=== PATIENT | female | born 1960 | race Caucasian/White ===

== ENCOUNTER → 2016-07-30 | Outpatient (REF) | payer OTHER | LOC: M LAB REF 12:55 | PROVIDERS: ATTEND Physician Assistant | DX: J01.10 Acute frontal sinusitis, unspecified (principal); J02.9 Acute pharyngitis, unspecified ==

== ENCOUNTER 2016-10-09 08:42 | Emergency (ER) | payer OTHER ==
[~2016-10-09] VITALS: Ht 170.2 cm; Wt 80.7 kg
[2016-10-09 08:42] VITALS: BP 146/89
[~2016-10-09 08:42] MED LIST: CITRTAB18 PO; VITA100054 PO; VITA500046 PO
== END 2016-10-09 10:30 | disposition home or self-care (01) ==
LOC: M ED 10:28
DX: S30.0XXA Contusion of lower back and pelvis, initial encounter (principal); W10.9XXA Fall (on) (from) unspecified stairs and steps, initial encounter; Y92.099 Unspecified place in other non-institutional residence as the place of occurrence of the external cause; Y93.89 Activity, other specified; Y99.9 Unspecified external cause status; Z88.8 Allergy status to other drugs, medicaments and biological substances

== ENCOUNTER → 2016-10-18 | Outpatient (CLI) | payer OTHER ==
[~2016-10-18] VITALS: Ht 170.2 cm; Wt 81.6 kg
[~2016-10-18] MED LIST changes: +LIDOCAINE 2% INJ 100 MG/5 ML SDV (FOR ANES.) As Ordered ONE; +NS 1,000 ML IV SCH; +PROPOFOL 200 MG/20 ML VIAL As Ordered ONE
--- NOTE | 2016-10-18 08:30 | ROOR ---
Patient Name: Mira Vegas Procedure Date: 10/18/2016 8:17 AM Date of : 1960 Age: 56 Room: [facility] Gender: Female Note Status: Finalized Procedure: Colonoscopy Indications: Screening for colorectal malignant neoplasm Providers: Fadi CALZADA MD Referring MD: BEVERLY LEON Requesting Provider: Medicines: Monitored Anesthesia Care Complications: No immediate complications. Procedure: Pre-Anesthesia Assessment: - The heart rate, respiratory rate, oxygen saturations, blood pressure, adequacy of pulmonary ventilation, and response to care were monitored throughout the procedure. The Colonoscope was introduced through the anus and advanced to the cecum, identified by appendiceal orifice and ileocecal valve. The colonoscopy was performed without difficulty. The patient tolerated the procedure well. The quality of the bowel preparation was poor. Findings: The perianal and digital rectal examinations were normal. The exam was otherwise normal throughout the examined colon. Impression: - Preparation of the colon was poor. - No obstructing lesions. - Consider early repeat exam. Recommendation: - Repeat colonoscopy in 1 year because the bowel preparation was poor. Fadi Calzada MD Fadi CALZADA MD 10/18/2016 8:30:31 AM This report has been signed electronically. Number of Addenda: 0 Note Initiated On: 10/18/2016 8:17 AM Estimated Blood Loss: Estimated blood loss: none.
[2016-10-18 09:00] VITALS: BP 141/81
== END | disposition home or self-care (01) ==
LOC: M OPP 07:21
PROVIDERS: ATTEND Internal Medicine Gastroenterology
DX: Z12.11 Encounter for screening for malignant neoplasm of colon (principal); Z78.0 Asymptomatic menopausal state; Z88.8 Allergy status to other drugs, medicaments and biological substances; Z79.899 Other long term (current) drug therapy; Z80.3 Family history of malignant neoplasm of breast
CPT/HCPCS: 99156; G0121

== ENCOUNTER 2016-12-01 18:35 | Emergency (ER) | payer OTHER ==
[~2016-12-01] VITALS: Ht 170.2 cm; Wt 77.1 kg
[~2016-12-01 18:35] MED LIST changes: -LIDOCAINE 2% INJ 100 MG/5 ML SDV (FOR ANES.) As Ordered ONE; -NS 1,000 ML IV SCH; -PROPOFOL 200 MG/20 ML VIAL As Ordered ONE
--- NOTE | 2016-12-01 20:50 | REPUSA ---
CLINICAL HISTORY: Head trauma. TECHNIQUE: Multiple axial brain CT scan sections were obtained from base to vertex without contrast a dministration. COMMENTS: There is no evidence of skull fracture. Note is made of a large left parietal scalp hematoma. The study shows normal configuration of sella turcica. There are no intra or extra-axial collections. There is no mass effect or midline shift. There is no evidence of hematoma formation. No hydrocephal us is present. No abnormal calcifications are noted. No significant abnormalities are seen either in the posterior fossa or supratentorial compartment. The sinuses and mastoid air cells are patent. IMPRESSION: No evidence of acute intracranial pathology. No intracranial hemorrhage or skull fracture. Large left parietal scalp hematoma. Thank you for your kind referral of this patient.
[2016-12-01 21:08] VITALS: BP 121/82
== END 2016-12-01 21:18 | disposition home or self-care (01) ==
LOC: M ED 20:05
DX: S01.01XA Laceration without foreign body of scalp, initial encounter (principal); W10.9XXA Fall (on) (from) unspecified stairs and steps, initial encounter; Y92.014 Private driveway to single-family (private) house as the place of occurrence of the external cause; Y93.01 Activity, walking, marching and hiking; Y99.9 Unspecified external cause status; Z88.8 Allergy status to other drugs, medicaments and biological substances

== ENCOUNTER → 2016-12-03 | Outpatient (CLI) | payer OTHER ==
[~2016-12-03] MED LIST changes: +Calcium; +DEPA250T2 PO; +IBUP600T26 PO
--- NOTE | 2016-12-03 08:53 | REPMRS ---
Patient History The patient states she had a clinical breast exam in 10/2016. Patient is postmenopausal and had first child at age 39. Family history of breast cancer in maternal aunt and breast cancer in maternal grandmother at age 50 or over. Took hormonal contraceptives for 15 years. Digital Woman Screen Mammo: December 03, 2016 - Exam #: [id number] Bilateral CC and MLO view(s) were taken. Technologist: Dominique Corona Technologist Prior study comparison: May 29, 2015, digital woman screen mammo performed at [facility]. February 28, 2014, bilateral bilat screen digital mammo, performed at [facility] ([facility]). February 15, 2013, bilateral bilat screen digital mammo, performed at [facility] ([facility]). FINDINGS: There are scattered fibroglandular densities. There has been no change in the appearance of the mammogram from the prior studies. There is a mild amount of scattered fibroglandular density which is fairly symmetric. There is no interval development of dominant mass, architectural distortion, or clustered microcalcification suggestive of malignancy. ASSESSMENT: BI-RADS/ACR category 1 mammogram. Negative. Recommendation Routine screening mammogram in 1 year (for women over age 40). This mammogram was interpreted with the aid of an FDA-approved computer-aided dectection system. Electronically Signed By: Angel Davis MD 12/03/16 0853
--- NOTE | 2016-12-07 09:32 | DEXA ---
AP SPINE L1 - L4 1.399 1.7 2.4 LT FEMUR TOTAL 1.154 1.2 1.8 RT FEMUR TOTAL 1.145 1.1 1.7 TOTAL BODY TOTAL OTHER DUAL FEMUR FRAX* ASSESSMENT Risk factors: Fracture as adult. 10 year probability of fracture Major osteoporotic fracture 8.8 % Hip fracture 0.2 % COMMENTS: Normal bone densitometry of the spine and hips. The density of the spine has increased 3.5% since 02/15/2003. The density of the left hip has decreased 0.6% since 02/15/2013. The density of the right hip has decreased 0.3% since 02/15/2013. The increased density of the spine does represent a significant change. The decreased density of the left hip does not represent a significant change. The decreased density of the right hip does not represent a significant change. FOLLOW-UP: Recommendation for the next bone density exam: 5 years. RAFI
== END ==
LOC: M WHC 07:49
PROVIDERS: ATTEND Obstetrics & Gynecology
DX: Z12.31 Encounter for screening mammogram for malignant neoplasm of breast (principal); Z13.820 Encounter for screening for osteoporosis; Z78.0 Asymptomatic menopausal state; Z92.0 Personal history of contraception
CPT/HCPCS: 77080; G0202

== ENCOUNTER 2016-12-07 10:11 | Emergency (ER) | payer OTHER ==
[~2016-12-07] VITALS: Ht 170.2 cm; Wt 173.0 kg
[~2016-12-07 10:11] MED LIST changes: -Calcium; -DEPA250T2 PO; -IBUP600T26 PO
[2016-12-07] MEDS ORDERED: IBUP600T26 PO (10:25)
[2016-12-07] MEDS ORDERED: Calcium (10:25)
[2016-12-07 11:42] VITALS: BP 146/89
== END 2016-12-07 11:47 | disposition home or self-care (01) ==
LOC: M ED 11:38
DX: S06.0X0S Concussion without loss of consciousness, sequela (principal); W10.9XXS Fall (on) (from) unspecified stairs and steps, sequela; Y92.014 Private driveway to single-family (private) house as the place of occurrence of the external cause; Y93.01 Activity, walking, marching and hiking; Y99.9 Unspecified external cause status; Z48.02 Encounter for removal of sutures; Z88.8 Allergy status to other drugs, medicaments and biological substances

== ENCOUNTER 2016-12-10 11:14 | Emergency (ER) | payer OTHER ==
[~2016-12-10] VITALS: Ht 170.2 cm; Wt 80.2 kg
[~2016-12-10 11:14] MED LIST changes: +Calcium; +IBUP-1022 PO
[2016-12-10] MEDS ORDERED: DEPA250T2 PO (13:23)
[2016-12-10 13:27] VITALS: BP 147/87
[2016-12-10] MEDS ORDERED: CLINDAMYCIN 900 MG in APPROPRIATE DILUENT 1 EA IV ONE (13:30)
== END 2016-12-10 13:44 | disposition home or self-care (01) ==
LOC: M ED 12:16
DX: G44.309 Post-traumatic headache, unspecified, not intractable (principal)

== ENCOUNTER → 2016-12-27 | Outpatient (REF) | payer OTHER ==
[~2016-12-27] MED LIST changes: +DEPA250T2 PO
== END ==
LOC: M LAB REF 16:43
PROVIDERS: ATTEND Physician Assistant
DX: F07.81 Postconcussional syndrome (principal); S01.80XD Unspecified open wound of other part of head, subsequent encounter; X58.XXXD Exposure to other specified factors, subsequent encounter; Y92.89 Other specified places as the place of occurrence of the external cause; Y93.89 Activity, other specified; Y99.8 Other external cause status

== ENCOUNTER → 2017-05-25 | Outpatient (CLI) | payer OTHER ==
--- NOTE | 2017-05-25 12:43 | REP ---
Clinical: Left-sided chest pain. Technique: Frontal view of the chest with multiple views of the left hemithorax. Findings: Frontal view of the chest demonstrates no acute cardiopulmonary process. Multiple views of the left hemithorax demonstrates no obvious acute rib fracture or pathology. Impression: Normal left rib series Signed by Reji Cedeño MD 05/25/2017 12:34 P
== END ==
LOC: M LRY 12:10
PROVIDERS: ATTEND Nurse Practitioner Family
DX: R07.81 Pleurodynia (principal)

== ENCOUNTER → 2017-12-14 | Outpatient (CLI) | payer OTHER | LOC: M WHC 08:28 | DX: Z12.31 Encounter for screening mammogram for malignant neoplasm of breast (principal) ==

== ENCOUNTER 2018-03-24 07:55 | Day surgery (SDC) | payer OTHER ==
[2018-03-24] MEDS: NS 1,000 ML IV (09:00)
[2018-03-24] MEDS ORDERED: LIDOCAINE 2% INJ 100 MG/5 ML SDV (FOR ANES.) As Ordered (09:52)
[2018-03-24] MEDS ORDERED: PROPOFOL 200 MG/20 ML VIAL As Ordered (09:52)
== END 2018-03-24 10:22 | disposition home or self-care (01) ==
LOC: M OPP 07:55
DX: Z12.11 Encounter for screening for malignant neoplasm of colon (principal); E55.9 Vitamin D deficiency, unspecified; Z87.828 Personal history of other (healed) physical injury and trauma; Z78.0 Asymptomatic menopausal state; Z88.8 Allergy status to other drugs, medicaments and biological substances; Z80.3 Family history of malignant neoplasm of breast
CPT/HCPCS: 45378

== ENCOUNTER → 2018-09-05 | Outpatient (REF) | payer OTHER ==
[~2018-09-05] MED LIST changes: +MULT1TAB10 PO
[2018-09-05 19:26] LABS: INFLUENZA A AMPLIFICATION NEGATIVE (NEGATIVE); INFLUENZA B AMPLIFICATION NEGATIVE (NEGATIVE)
== END ==
LOC: M LAB REF 18:38
PROVIDERS: ATTEND Physician Assistant Medical
DX: J11.1 Influenza due to unidentified influenza virus with other respiratory manifestations (principal)

== ENCOUNTER → 2018-12-13 | Outpatient (CLI) | payer OTHER ==
--- NOTE | 2018-12-13 15:47 | REPMRS ---
Patient History The patient states she had a clinical breast exam in 11/2018. Patient is postmenopausal and had first child at age 39. Family history of breast cancer under age 50 in maternal aunt. Took hormonal contraceptives for 15 years. 3D TOMOSYNTHESIS WAS PERFORMED. The [facility] lifetime risk for breast cancer is 14.9%. Digital Woman Screen Mammo: December 13, 2018 - Exam #: [id number] Bilateral CC and MLO view(s) were taken. Technologist: Hien Martinez, Technologist Prior study comparison: December 14, 2017, bilateral digital woman screen mammo performed at [facility]. December 03, 2016, digital woman screen mammo performed at [facility]. FINDINGS: There are scattered fibroglandular densities. There has been no change in the appearance of the mammogram from the prior studies. There is a mild amount of residual fibroglandular tissue which is fairly symmetric. There is no interval development of dominant mass, architectural distortion, or clustered microcalcification suggestive of malignancy. Assessment: BI-RADS/ACR category 1 mammogram. Negative Mammogram. Recommendation Routine screening mammogram in 1 year (for women over age 40). This mammogram was interpreted with the aid of an FDA-approved computer-aided dectection system. Electronically Signed By: Juan Serra MD 12/13/18 2265
== END ==
LOC: M WHC 14:35
PROVIDERS: ATTEND Nurse Practitioner Women's Health
DX: Z12.31 Encounter for screening mammogram for malignant neoplasm of breast (principal); Z78.0 Asymptomatic menopausal state; Z92.0 Personal history of contraception

== ENCOUNTER → 2018-12-13 | Outpatient (REF) | payer OTHER ==
[2018-12-20 16:11] LABS: HPV HYBRID CAPTURE II Negative (Negative)
== END ==
LOC: M SFHCWAGY 15:43
PROVIDERS: ATTEND Nurse Practitioner Women's Health
DX: Z12.4 Encounter for screening for malignant neoplasm of cervix (principal); N85.8 Other specified noninflammatory disorders of uterus

== ENCOUNTER → 2019-09-24 | Outpatient (CLI) | payer BC | LOC: M LABSMTC 11:43 | PROVIDERS: ATTEND Family Medicine | DX: Z11.59 Encounter for screening for other viral diseases (principal); Z20.828 Contact with and (suspected) exposure to other viral communicable diseases ==

== ENCOUNTER → 2020-01-10 | Outpatient (CLI) | payer BC ==
--- NOTE | 2020-01-10 14:32 | REPMRS ---
Patient History The patient states she had a clinical breast exam in December 2019. Family history of breast cancer under age 50 in maternal aunt. Took hormonal contraceptives for 15 years. 3D TOMOSYNTHESIS WAS PERFORMED. The [facility] lifetime risk for breast cancer is 14.6%. VOLOSCARA ANDERS B. Digital Woman Screen Mammo: January 10, 2020 - Exam #: [id number] Bilateral CC and MLO view(s) were taken. Technologist: Ariela London, Technologist Prior study comparison: December 13, 2018, bilateral digital woman screen mammo performed at [facility]. December 14, 2017, bilateral digital woman screen mammo performed at [facility]. FINDINGS: There are scattered fibroglandular densities. There has been no change in the appearance of the mammogram from the prior studies. There is a mild amount of residual fibroglandular tissue which is fairly symmetric. There is no interval development of dominant mass, architectural distortion, or clustered microcalcification suggestive of malignancy. Assessment: BI-RADS/ACR category 1 mammogram. Negative Mammogram. Recommendation Routine screening mammogram in 1 year (for women over age 40). This mammogram was interpreted with the aid of an FDA-approved computer-aided dectection system. Electronically Signed By: Juan Serra MD 01/10/20 [id number]
== END ==
LOC: M WHC 13:27
PROVIDERS: ATTEND Nurse Practitioner Women's Health
DX: Z12.31 Encounter for screening mammogram for malignant neoplasm of breast (principal)

== ENCOUNTER → 2021-01-14 | Outpatient (REF) | payer BC | LOC: M SFHCWAGY 13:07 | PROVIDERS: ATTEND Nurse Practitioner Women's Health | DX: Z12.4 Encounter for screening for malignant neoplasm of cervix (principal) | CPT/HCPCS: 87624; G0123 ==

== ENCOUNTER → 2021-01-14 | Outpatient (CLI) | payer BC ==
--- NOTE | 2021-01-14 11:25 | REPMRS ---
Patient History The patient states she had a clinical breast exam in December 2020. Family history of breast cancer under age 50 in maternal aunt. Took hormonal contraceptives for 15 years. Covid vaccines 06/2020 left arm. 07/2020 left arm Patient states no breast complaints today. Patient has signed MRS History Sheet. Digital Woman Screen Mammo: January 14, 2021 - Exam #: [id number] Bilateral CC and MLO view(s) were taken. Technologist: RT Deborah Prior study comparison: January 10, 2020, bilateral digital woman screen mamm[facility]. December 13, 2018, bilateral digital woman screen mammo performed at [facility]. December 14, 2017, bilateral digital woman screen mammo performed at [facility]. FINDINGS: There are scattered fibroglandular densities. The [facility] volumetric breast density category is:B. There is a small spiculated nodular bridger density in the superomedial quadrant of the left breast which merits further evaluation. 4 mm in greatest diameter. There has been no other change in the appearance of the mammogram from the prior studies. There is a mild amount of scattered fibroglandular density which is fairly symmetric. There is no other interval development of dominant mass, architectural distortion, or grouped microcalcification suggestive of malignancy. 3-D tomosynthesis shows no additional findings. Assessment: BI-RADS/ACR category 0 mammogram, Incomplete: Need additional imaging evaluation and/or prior mammograms for comparison. Recommendation Ultrasound and special view mammogram of the left breast. This patient's [facility] Lifetime Breast Cancer Risk is estimated at 14.2 %. This mammogram was interpreted with the aid of an FDA-approved computer-aided dectection system. Electronically Signed By: Angel Davis MD 01/14/21 1123
== END ==
LOC: M WHC 10:05
PROVIDERS: ATTEND Nurse Practitioner Women's Health
DX: R92.8 Other abnormal and inconclusive findings on diagnostic imaging of breast (principal)

== ENCOUNTER → 2021-01-22 | Outpatient (CLI) | payer BC ==
--- NOTE | 2021-01-22 16:15 | REP ---
INDICATION: ADDITIONAL VIEWS LT BREAST. COMPARISON: Multiple the latest prior screening examination 01/14/2021 TECHNIQUE: Diagnostic digital magnified spot compression views of the left breast were obtained in the CC and MLO projections over the small asymmetric density seen on the prior screening examination in the upper inner quadrant. Diagnostic ultrasonography was also performed. FINDINGS: The small asymmetric density seen on the screening examination persists on the diagnostic spot compression views. Focused diagnostic left breast ultrasound shows no cystic or solid masses. IMPRESSION: BIRADS/ACR category 4 mammogram. There is a small but persistent irregular bridger density seen in the left breast upper inner quadrant for which biopsy is recommended. The patient letter being requested is M4. RECOMMENDATION: As above. <Electronically signed by Ben German > 01/22/21 9427
== END ==
LOC: M WHC 14:50
PROVIDERS: ATTEND Nurse Practitioner Women's Health
DX: R92.2 Inconclusive mammogram (principal)

== ENCOUNTER → 2021-02-10 | Outpatient (CLI) | payer BC ==
[2021-02-10 14:06] VITALS: BP 130/78
--- NOTE | 2021-02-10 14:55 | REP ---
INDICATION: R92.8 ABN MAMMO LT BREAST,POST STEREOTACTIC BIOPSY. COMPARISON: 01/14/2021, 02/10/2021. TECHNIQUE: Following stereotactic biopsy A of left breast nodule, MLO, mL and CC views of the left breast are performed. FINDINGS: A biopsy clip is seen at the site of the nodule previously identified by mammography. IMPRESSION: Successful stereotactic biopsy of left breast nodule, marking clip noted at the site of the nodule. RECOMMENDATION: Clinical follow-up. <Electronically signed by Juan Serra > 02/10/21 1969
--- NOTE | 2021-02-10 17:20 | REP ---
INDICATION: R92.8 ABN MAMMO LT BREAST. COMPARISON: None. TECHNIQUE: This procedure is performed by Lydia Cochran [facility], under the direct supervision of Dr. Serra. The risks and benefits of the procedure were explained to the patient and informed consent was obtained both verbally and written. Directly prior to the start of the procedure, a formal timeout was done in the procedure room. The superior to inferior cranial caudal approach was utilized on the prone table. The left breast nodule was localized using mammographic guidance. The skin was prepped and draped in a sterile fashion. Three ml of buffered lidocaine was used as a local anesthetic. FINDINGS: A 12 gauge mammotome vacuum assisted biopsy device was inserted and advanced into the breast lesion and 7 core biopsy samples were obtained. During the biopsy the patient complained of pain so another 12 mL of buffered lidocaine was injected through the biopsy device. A shape 3 marker clip was placed at the biopsy site. The patient tolerated the procedure well and there were no immediate complications. After the appropriate amount of monitored convalescence the patient was discharged from the department. IMPRESSION: Stereotactic guided left breast biopsy with micro clip placement. <Electronically signed by Lydia Cochran > 02/10/21 1642 <Electronically signed by Juan Serra > 02/10/21 0945
== END ==
LOC: M WHCPRO 06:26
PROVIDERS: ATTEND Nurse Practitioner Women's Health
DX: D05.12 Intraductal carcinoma in situ of left breast (principal)

== ENCOUNTER → 2021-03-13 | Outpatient (CLI) | payer BC ==
[~2021-03-13] MED LIST changes: +PROHANCE 279.3MG/ML 15ML VIAL As Ordered ONE
--- NOTE | 2021-03-13 16:57 | REP ---
INDICATION: DUCTAL CARCINOMA INSITU LT BREAST. COMPARISON: Mammogram 01/14/2021 and 01/22/2021. TECHNIQUE: Three Deb MRI imaging was performed with a dedicated breast coil. Only axial T1 and T2 weighted scans were obtained, the patient could not tolerate further imaging. FINDINGS: There is mild scattered fibroglandular tissue in both breasts. Recently placed biopsy clip is seen in the upper inner left breast. There are small axillary lymph nodes present bilaterally in a symmetrical pattern with no significant axillary adenopathy. No significant cystic change is seen in either breast. No definite architectural abnormality is visualized bilaterally. IMPRESSION: BI-RADS category 0, incomplete exam. Patient could only tolerate axial T1 and T2 weighted imaging. Gadolinium was not administered. Therefore I cannot evaluate for neoplastic disease. There is no axillary adenopathy. There is no significant cystic change. There is no definite architectural abnormality in either breast. <Electronically signed by Juan Serra > 03/13/21 [id number]
== END ==
LOC: M RAD 14:40
PROVIDERS: ATTEND Surgery
DX: D05.12 Intraductal carcinoma in situ of left breast (principal); Z53.29 Procedure and treatment not carried out because of patient's decision for other reasons
CPT/HCPCS: A9576; C8908

== ENCOUNTER → 2021-04-09 | Outpatient (CLI) | payer BC ==
[~2021-04-09] MED LIST changes: -PROHANCE 279.3MG/ML 15ML VIAL As Ordered ONE
== END ==
LOC: M LABSMTC 10:46
PROVIDERS: ATTEND Anesthesiology
DX: Z01.812 Encounter for preprocedural laboratory examination (principal); Z20.822 Contact with and (suspected) exposure to COVID-19

== ENCOUNTER 2021-04-14 06:32 | Day surgery (SDC) | payer BC ==
[~2021-04-14] VITALS: Ht 170.2 cm; Wt 80.3 kg
[~2021-04-14 06:32] MED LIST changes: +HEPARIN SOD (PORCINE) 5000UNITS/ML 1ML VIAL/SYRINGE SQ SCH; +LR 1,000 ML IV SCH; +ceFAZolin SOD 2 GM in IV 1 EA IV SCH
--- OUTSIDE RECORDS SUMMARY | 2021-04-14 06:38 | CCD ---
Author Author [facility] Organization [facility] Address Unknown Phone Unavailable Care Team Providers Care Carpentry Teacher Name Role Phone Shantel Yoli Unavailable PROBLEMS Type Condition ICD9-CM Code [id number] Code Onset Dates Condition S tatus W/U Status Risk SNOMED Code Notes Problem Vitamin d deficiency 268.9 Active confirmed 41538841 ALLERGIES Allergen (clinical drug ingredient) Drug/Non Drug Allergy do cumented on EMR Reaction Allergy Type Onset Date Status Compazine Confusion Drug Allergy Active ENCOUNTERS from 1960 to 2021-01-16 Encounter Location Date Provider Diagnosis [facility] [address] [place] [address] [place] [address] Dec, Yoli Funes IMMUNIZATIONS No Information SOCIAL HISTORY Tobacco Use: Social History Observation Description Date Details (start date - stop date) Never Smoker Sex Assigned At : Social History Observation Description Sex Assigned At Unknown Language: Question Answer Notes Languages spoken: Yakut Sexual Hx: Question Answer Notes Had sex in the last 12 months (vaginal, oral, or anal)? Yes LMP: post menopause Have you ever had an STD? No with Men only Tobacco Use: Question Answer Notes Are you a: never smoker REASON FOR REFERRAL No Information VITAL SIGNS No information MEDICATIONS Medication SIG (Take, Route, Frequency, Duration) Notes Start Da te End Date Status Caltrate 600+D 600-800 MG-UNIT 1 tablet with a meal Orally Once a day Active Drisdol 42912 UNIT 1 capsule Orally weekly Not-Taking Zanaflex 4 MG 1 tablet as needed Orally every 8 hours as neede d for 30 days Apr, Not-Taking Multi Adult Gummies - Orally Act raúl IBU-200 200 MG 1 tablet as needed Orally every 6 hrs Active Physical Therapy evaluate and treat mechanical eval & tx left rib pain (R07.81) 3 x/wk x for 1 month May, Not-Taking PROCEDURES No Information RESULTS No Results REASON FOR VISIT cat 0 mammo MEDICAL (GENERAL) HISTORY Type Description Date Medical History uterine fibroids Surgical History d&c's x3 - [place] Surgical History colonoscopy 03/24/18 Hospitalization History childbirth Goals Section No Information Health Concerns No Information MEDICAL EQUIPMENT No Information MENTAL STATUS No Information FUNCTIONAL STATUS No Information ASSESSMENTS No Information PLAN OF TREATMENT Next Appt Details Provider Name:Yoli Escobarc, 2022-01-19 10:00:00 AM, [address] [facility] [address], , [place], [address], Insurance Providers Payer Name Payer Address Payer Phone Insured Name Patient Relati onship to Insured Coverage Start Date Coverage End Date BCBS [place] PPO [id number] [facility] [place] [id number] SHELDON MAO self
--- OUTSIDE RECORDS SUMMARY | 2021-04-14 06:38 | CCD ---
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 650069389 Problem Vitamin d deficiency 268.9 Active confirmed 81824859 ALLERGIES Allergen (clinical drug ingredient) Drug/Non Drug Allergy do cumented on EMR Reaction Allergy Type Onset Date Status Compazine Confusion Drug Allergy Active ENCOUNTERS from 1960 to 2021-02-13 Encounter Location Date Provider Diagnosis [facility] [address] [place] [id number] [place] [address] Jan, Yoli Funes Abnormal mammogram o f left breast R92.8 and Ductal carcinoma in situ (DCIS) of left breast D05.12 IMMUNIZATIONS No Information SOCIAL HISTORY Tobacco Use: Social History Observation Description Date Details (start date - stop date) Never Smoker Sex Assigned At : Social History Observation Description Sex Assigned At Unknown Language: Question Answer Notes Languages spoken: Kinyarwanda Sexual Hx: Question Answer Notes Had sex in the last 12 months (vaginal, oral, or anal)? Yes LMP: post menopause Have you ever had an STD? 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,[place], [place],[facility] Referred Provider Specialty Surgery Referral Priority Routine Referral Appointment Date 2021-02-19 VITAL SIGNS Weight 176.4 lbs Jan, Weight-kg 80.01 kg Jan, Height 66 in Jan, BMI 28.47 kg/m2 Jan, Heart Rate 71 /min Jan, Respiratory Rate 18 /min Jan, Temperature 97.4 degrees Fahrenheit Jan, Oximetry 96 Jan, MEDICATIONS Medication SIG (Take, Route, Frequency, Duration) Notes Start Da te End Date Status Caltrate 600+D 600-800 MG-UNIT 1 tablet with a meal Orally Once a day Active Physical Therapy evaluate and treat mechanical eval & tx left rib pain (R07.81) 3 x/wk x for 1 month May, Not-Taking Multi Adult Gummies - Orally Act raúl Drisdol 32489 UNIT 1 capsule Orally weekly Not-Taking IBU-200 200 MG 1 tablet as needed Orally every 6 hrs Active Zanaflex 4 MG 1 tablet as needed Orally every 8 hours as neede d for 30 days Apr, Not-Taking PROCEDURES No Information RESULTS No Results REASON FOR VISIT post-bx follow-up MEDICAL (GENERAL) HISTORY Type Description Date Medical History uterine fibroids Surgical History d&c's x3 - [place] Surgical History colonoscopy 03/24/18 Hospitalization History childbirth Goals Section No Information Health Concerns No Information MEDICAL EQUIPMENT No Information MENTAL STATUS No Information FUNCTIONAL STATUS No Information ASSESSMENTS Encounter Date Diagnosis Assessment Notes Treatment Notes Treatm ent Clinical Notes Jan, Abnormal mammogram of left breast (ICD-10 - R92. 8) Biopsy site is without sign of infection or hematoma. Pathology reviewed with patient, discussed referral to Dr Silveira. Discussed that we are still waiting for hormone receptors to come back. Booklet given to pt on DCIS. Jan, Ductal carcinoma in situ (DCIS) of left breast ( ICD-10 - D05.12) Discussed genetic testing, pt verbalized that this is too overwhelming for her at this point and that she will need time to think about this. Pt aware that she will see Dr Silveira on for consult. This appt date and time are acceptable to pt. I reviewed her care team, reviewed the next few steps to expect and gave pt the number for the nurse navigator, pt aware she can call when needed. PLAN OF TREATMENT Treatment Notes Assessment Notes Clinical Notes Abnormal mammogram of left breast Biopsy site is without sign of infection or hematoma. Pathology reviewed with patient, discussed referral to Dr Silveira. Discussed that we are still waiting for hormone receptors to come back. Booklet given to pt on DCIS. Ductal carcinoma in situ (DCIS) of left breast Discussed genetic testing, pt verbalized that this is too overwhelming for her at this point and that she will need time to think about this. Pt aware that she will see Dr Silveira on for consult. This appt date and time are acceptable to pt. I reviewed her care team, reviewed the next few steps to expect and gave pt the number for the nurse navigator, pt aware she can call when needed. Referrals Referral Date Details 2021-02-19 2021-02-19, 60 year old bruce maddox with DCIS left breast, please evaluate and manage as necessary, thank you, Melva Silveira, [address] [place] [address], [id number], Next Appt Details 02/19/21 Reason:consult with Dr Bernadette mehta Provider Name:Melva Silveira, 14-02-26 07:30:00 AM, [address] [place] [address], , [place], [address], Provider Name:Yoli Funes, 2022-01-19 10:00:00 AM, [address] [place] [address], , [place], [address], Follow Up:02/19/21consult with Dr Silveira Insurance Providers Payer Name Payer Address Payer Phone Insured Name Patient Relati onship to Insured Coverage Start Date Coverage End Date BCBS [facility] [id number] [facility] [place] [address] SHELDON MAO self
--- OUTSIDE RECORDS SUMMARY | 2021-04-14 06:38 | CCD ---
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 3188620123019397 Problem Vitamin D deficiency E55.9 Active confirmed 83702251 Problem Tubular carcinoma of left breast C50.912 Active confirmed 927318052 ALLERGIES Allergen (clinical drug ingredient) Drug/Non Drug Allergy do cumented on EMR Reaction Allergy Type Onset Date Status Compazine Confusion Drug Allergy Active ENCOUNTERS from 1962 to 2021-02-23 Encounter Location Date Provider Diagnosis [id number] [place] [address] Jan, Mayte Suero 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 Yes Have you ever had an STD? No with Men only Use protection? No Drug and Alcohol Question Answer Notes Total Score: 0 Interpretation: No problems reported Tobacco Use: Question Answer Notes Are you a: never smoker REASON FOR REFERRAL No Information VITAL SIGNS Weight 175 lbs Jan, Height 66 in Jan, BMI 28.24 kg/m2 Jan, Heart Rate 74 /min Jan, Respiratory Rate 18 /min Jan, Temperature 96.7 degrees Fahrenheit Jan, Oximetry 99 Jan, Blood pressure systolic 122 mm Hg Jan, Blood pressure diastolic 76 mm Hg Jan, MEDICATIONS Medication SIG (Take, Route, Frequency, Duration) Notes Start Da te End Date Status Calcium + D 500-1000-40 MG-UNT-MCG as directed Orally Not-Taking Drisdol 06618 UNIT 1 capsule Orally weekly Not-Taking Multi Adult Gummies - Orally Not -Taking PROCEDURES No Information RESULTS No Results REASON FOR VISIT MARKETING ASSISTANT RETAIL DIVISION-To Establish Care, Reference #: [id number] blank page MEDICAL (GENERAL) HISTORY Type Description Date Medical History Uterine fibroids Medical History Left breast DCIS (01/2021) - Dr. Anthony sweet Surgical History d&c's x3 - [facility] Surgical History Colonoscopy - normal, Dr. Calzada 02/2018 Surgical History Left breast stereotactic biopsy 02/10/21 Hospitalization History childbirth Goals Section No Information Health Concerns No Information MEDICAL EQUIPMENT No Information MENTAL STATUS No Information FUNCTIONAL STATUS No Information ASSESSMENTS Encounter Date Diagnosis Assessment Notes Treatment Notes Treatm ent Clinical Notes Jan, Ductal carcinoma in situ of left breast (ICD-10 - D05.12) Managed by Dr. Silveira. Jan, Annual physical exam (ICD-10 - Z00.00) The [place] [employer] recommends exercise for overall cardiovascular health. Recommendation is for at least 30 minutes of moderate-intensity aerobic activity at least 5 days per week for a total of 150 minutes, or at least 25 minutes of vigorous aerobic activity at least 3 days per week for a total of 75 minutes; or a combination of moderate- and vigorous-intensity aerobic activity AND moderate- to high-intensity muscle-strengthening activity at least 2 days per week for additional health benefits. Physical activity is anything that makes you move your body and burn calories. This includes things like walking, climbing stairs, or playing sports. Aerobic exercises benefit your heart, and include walking, jogging, swimming or biking. Strength and stretching exercises are best for overall stamina and flexibility. Medical, surgical, and family histories were reviewed and updated. See preventative section. Jan, Tubular carcinoma of left breast (ICD-10 - C50.9 12) Managed by Dr. Silveira. Jan, Screening for diabetes mellitus (ICD-10 - Z13.1) Jan, Screening for hyperlipidemia (ICD-10 - Z13.220) Jan, Vitamin D deficiency (ICD-10 - E55.9) Noted in 2014, recheck PLAN OF TREATMENT Treatment Notes Assessment Notes Clinical Notes Ductal carcinoma in situ of left breast Managed by Dr. Silveira. Annual physical exam The [employer] on recommends exercise for overall cardiovascular health. Recommendation is for at least 30 minutes of moderate-intensity aerobic activity at least 5 days per week for a total of 150 minutes, or at least 25 minutes of vigorous aerobic activity at least 3 days per week for a total of 75 minutes; or a combination of moderate- and vigorous- intensity aerobic activity AND moderate- to high-intensity muscle-strengthening activity at least 2 days per week for additional health benefits.Physical activity is anything that makes you move your body and burn calories. This includes things like walking, climbing stairs, or playing sports. Aerobic exercises benefit your heart, and include walking, jogging, swimming or biking. Strength and stretching exercises are best for overall stamina and flexibility. Medical, surgical, and family histories were reviewed and updated. See preventative section. Tubular carcinoma of left breast Managed by Dr. Silveira. Vitamin D deficiency Noted in 2014, rech mague Future Test Test Name Order Date VITAMIN D 25-HYDROXY [id number] Comprehensive Metabolic Profile (CMP) [id number] LIPID PANEL (CARDIAC RISK) [id number] Next Appt Details 1 year; 30 min Reason:Annual Provider Name:Yoli Funes, 2022-01-19 10:00:00 AM, [address] [facility], , [place], [address], Provider Name:Mayte Suero, 2022-02-23 08:15:00 AM, [address] [facility], , [place], [address], Follow Up:1 year; 30 minAnnual Insurance Providers Payer Name Payer Address Payer Phone Insured Name Patient Relati onship to Insured Coverage Start Date Coverage End Date BCBS RUCHI BALDWIN [facility] [id number] [facility] [id number] SHELDON MAO
--- OUTSIDE RECORDS SUMMARY | 2021-04-14 06:38 | CCD ---
Author Author [facility] Organization 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 [id number] Problem Vitamin D deficiency E55.9 Active confirmed 95551358 Problem Tubular carcinoma of left breast C50.912 Active confirmed 317310536 ALLERGIES Allergen (clinical drug ingredient) Drug/Non Drug Allergy do cumented on EMR Reaction Allergy Type Onset Date Status Compazine Confusion Drug Allergy Active ENCOUNTERS from 1962 to 2021-03-16 Encounter Location Date Provider Diagnosis [facility] [address] [place] [address] [place] [id number] Feb, Melva Silveira IMMUNIZATIONS No Information SOCIAL HISTORY Tobacco Use: [...] D 500-1000-40 MG-UNT-MCG as directed Orally Not-Taking Chaim 57942 UNIT 1 capsule Orally weekly Not-Taking Multi Adult Gummies - Orally Not -Taking PROCEDURES No Information RESULTS No Results REASON FOR VISIT PREOP FOR BREAST SURG MEDICAL (GENERAL) HISTORY Type Description Date Medical History Uterine fibroids Medical History Left breast DCIS (01/2021) - Dr. Anthony sweet Medical History ASCVD risk 2.3% in 01/2021 [facility] Surgical History Colonoscopy - normal, Dr. Calzada 02/2018 Surgical History Left breast stereotactic biopsy 02/10/21 Hospitalization History childbirth Goals Section No Information Health Concerns No Information MEDICAL EQUIPMENT No Information MENTAL STATUS No Information FUNCTIONAL STATUS No Information ASSESSMENTS No Information PLAN OF TREATMENT Next Appt Details Provider Name:Mayte Suero, 2021-04-07 01:45:00 PM, [address] [place] [address] , [place], [address], Provider Name:Melva Silveira, 16-04-25 11:00:00 AM, [address] [place] [address] , [employer], [place], [facility] [phone] Provider Name:Yoli Funes, 2022-01-19 10:00:00 AM, [address] [place] [address] , [place], [address], Provider Name:Mayte Suero, 2022-02-23 08:15:00 AM, [address] [place] [address] , [place], [address], Insurance Providers Payer Name Payer Address Payer Phone Insured Name Patient Relati onship to Insured Coverage Start Date Coverage End Date BCBS UTIMATTIE BALDWIN PPO [phone] [facility] [employer] [facility] [place] [id number] SHELDON MAO
--- OUTSIDE RECORDS SUMMARY | 2021-04-14 06:38 | CCD ---
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 [id number] Problem Vitamin D deficiency E55.9 Active confirmed 32469645 Problem Tubular carcinoma of left breast C50.912 Active confirmed 010953396 ALLERGIES Allergen (clinical drug ingredient) Drug/Non Drug Allergy do cumented on EMR Reaction Allergy Type Onset Date Status Compazine Confusion Drug Allergy Active ENCOUNTERS from 1962 to 2021-02-24 Encounter Location Date Provider Diagnosis [address] [phone] [place] [address] Jan, Mayte Suero IMMUNIZATIONS No Information SOCIAL HISTORY Tobacco Use: [...] 500-1000-40 MG-UNT-MCG as directed Orally Not-Taking Chaim 88171 UNIT 1 capsule Orally weekly Not-Taking Multi Adult Gummies - Orally Not -Taking PROCEDURES No Information RESULTS No Results REASON FOR VISIT Lipid panel MEDICAL (GENERAL) HISTORY Type Description Date Medical History Uterine fibroids Medical History Left breast DCIS (01/2021) - Dr. Anthony sweet Medical History ASCVD risk 2.3% in 01/2021 Surgical History d&c's x3 - [facility] Surgical History Colonoscopy - normal, Dr. Calzada 02/2018 Surgical History Left breast stereotactic biopsy 02/10/21 Hospitalization History childbirth Goals Section No Information Health Concerns No Information MEDICAL EQUIPMENT No Information MENTAL STATUS No Information FUNCTIONAL STATUS No Information ASSESSMENTS No Information PLAN OF TREATMENT Next Appt Details Provider Name:Yoli Funes, 2022-01-19 10:00:00 AM, [address] [place] [address], , [place], [address], Provider Name:Mayte Suero, 2022-02-23 08:15:00 AM, [address] [place] [address], , [place], [address], Insurance Providers Payer Name Payer Address Payer Phone Insured Name Patient Relati onship to Insured Coverage Start Date Coverage End Date BCBS UTIMATTIE BALDWIN PPO [phone] [facility] [employer] [place] [facility] [address] SHELDON MAO
--- OUTSIDE RECORDS SUMMARY | 2021-04-14 06:38 | CCD ---
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 [id number] Problem Vitamin D deficiency E55.9 Active confirmed 69704951 Problem Tubular carcinoma of left breast C50.912 Active confirmed 567765834 ALLERGIES Allergen (clinical drug ingredient) Drug/Non Drug Allergy do cumented on EMR Reaction Allergy Type Onset Date Status Compazine Confusion Drug Allergy Active ENCOUNTERS from 1962 to 2021-04-08 Encounter Location Date Provider Diagnosis [address] [phone] [place] [address] Mar, Mayte Suero Pre-op evaluation Z01.818 ; 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 and Tubular carcinoma of left breast C50.912 IMMUNIZATIONS No Information SOCIAL HISTORY Tobacco Use: [...] No Information VITAL SIGNS Weight 175 lbs 12 Mar, 2021 Height 66 in Mar, BMI 28.24 kg/m2 Mar, Heart Rate 90 /min Mar, Respiratory Rate 18 /min Mar, Temperature 96.7 degrees Fahrenheit Mar, Oximetry 98 Mar, Blood pressure systolic 118 mm Hg Mar, Blood pressure diastolic 76 mm Hg Mar, MEDICATIONS Medication SIG (Take, Route, Frequency, Duration) Notes Start Da te End Date Status Multi Adult Gummies - Orally Not -Taking Drisdol 18232 UNIT 1 capsule Orally weekly Not-Taking Calcium + D 500-1000-40 MG-UNT-MCG as directed Orally Not-Taking PROCEDURES No Information RESULTS No Results REASON FOR VISIT Preoperative clearance for left breast lumpectomy by Gena Silveira at [facility] on , surgeon's fax [phone], diagnosis code D05.12,C50.912 MEDICAL (GENERAL) HISTORY Type Description Date Medical History Uterine fibroids Medical History Left breast DCIS (01/2021) - Dr. Anthony sweet Medical History ASCVD risk 2.3% in 01/2021 Surgical History d&c's x3 - [facility] Surgical History Colonoscopy - normal, Dr. Calzada 02/2018 Surgical History Left breast stereotactic biopsy 02/10/21 Hospitalization History childbirth Goals Section No Information Health Concerns No Information MEDICAL EQUIPMENT No Information MENTAL STATUS No Information FUNCTIONAL STATUS No Information ASSESSMENTS Encounter Date Diagnosis Assessment Notes Treatment Notes Treatm ent Clinical Notes Mar, Pre-op evaluation (ICD-10 - Z01.818) I discussed the risks vs. benefits of surgery with the patient in generic terms. I feel that the patient is at low risk for perioperative complications. EKG today shows NSR with rate of 65; nonspecific ST-[facility] changes. No prior available for comparison. CBC and CMP (done at outside lab) were normal. Patient does not smoke, has no history of lung disease, O2 sat is 98%, and lungs are clear on exam today; therefore, I do not feel it is necessary for her to have a chest x-ray in order for me to clear her for surgery. The patient knows that there is always some risk with surgery and that each individual has to make a decision regarding whether the benefits of surgery outweigh the risks in order to proceed. I advised the patient to direct further questions regarding the specifics of the proposed surgical procedure and specific risks to the surgeon. At this time I feel that the patient's acute and chronic medical conditions are sufficiently optimized to proceed with surgery. Mar, Ductal carcinoma in situ of left breast (ICD-10 - D05.12) Surgery is planned. Mar, Tubular carcinoma of left breast (ICD-10 - C50.9 12) Surgery is planned. PLAN OF TREATMENT Treatment Notes Assessment Notes Clinical Notes Pre-op evaluation I discussed the risk s vs. benefits of surgery with the patient in generic terms. I feel that the patient is at low risk for perioperative complications.EKG today shows NSR with rate of 65; nonspecific ST- [facility] changes. No prior available for comparison.CBC and CMP (done at outside lab) were normal.Patient does not smoke, has no history of lung disease, O2 sat is 98%, and lungs are clear on exam today; therefore, I do not feel it is necessary for her to have a chest x-ray in order for me to clear her for surgery.The patient knows that there is always some risk with surgery and that each individual has to make a decision regarding whether the benefits of surgery outweigh the risks in order to proceed. I advised the patient to direct further questions regarding the specifics of the proposed surgical procedure and specific risks to the surgeon.At this time I feel that the patient's acute and chronic medical conditions are sufficiently optimized to proceed with surgery. Ductal carcinoma in situ of left breast Surgery is planned. Tubular carcinoma of left breast Surgery is planned. Treatment Notes Test Name Order Date ELECTROCARDIOGRAM, COMPLETE EKG 2021-04-07 Future Test Test Name Order Date CBC - Complete Blood Count [id number] Comprehensive Metabolic Profile (CMP) [id number] Next Appt Details as sched Reason: Provider Name:Melva Silveira, 16-04-19 10:00:00 AM, [address] [place] [address] , [place], [address], Provider Name:Melva Silveira, 16-04-25 11:00:00 AM, [address] [place] [address] , [place], [address], Provider Name:Melva Silveira, 17-05-15 10:00:00 AM, [address] [place] [address], , [place], [address], Provider Name:Yoli Funes, 2022-01-19 10:00:00 AM, [address] [place] [place] [address], , [place], [address], Provider Name:Mayte Suero, 2022-02-23 08:15:00 AM, [address] [place] [place] [address], , [place], [address], Insurance Providers Payer Name Payer Address Payer Phone Insured Name Patient Relati onship to Insured Coverage Start Date Coverage End Date BCBS [place] PPO [phone] [facility] [place] [facility] [place] [id number] SHELDON MAO self
--- OUTSIDE RECORDS SUMMARY | 2021-04-14 06:38 | CCD ---
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 251959255 ALLERGIES Allergen (clinical drug ingredient) Drug/Non Drug Allergy do cumented on EMR Reaction Allergy Type Onset Date Status Compazine Confusion Drug Allergy Active ENCOUNTERS from 1960 to 2021-02-28 Encounter Location Date Provider Diagnosis [facility] [address] [place] [address] [place] [id number] Jan, Melva Silveira 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 Diagnosis 1 Encounter to establish care with new doctor (Z76.89) Referral Organization [facility] Breast [facility] Referring Provider First Name Melva Referring Provider Last Name Raoul Referring Provider Specialty Surgery Referred Organization [facility] Esther Referred Provider Mayte Suero Referred Address [address] [facility],,[place], [place],[address] Referred Provider Specialty Family Medicine Referral Priority Routine Referral Appointment Date 2021-02-20 Reason New diagnosis of Left breast DCIS with tubular carcinoma, grade 1 ER 100%, Pr30%, HER2 negative. Please evaluate for adjuvant treatment. Diagnosis 1 Ductal carcinoma in situ of left breast (D05.12) Referral Organization [facility] Breast Care Referring Provider First Name Melva Referring Provider Last Name Raoul Referring Provider Specialty Surgery Referred Provider Fatmata Mejia Referred Provider Specialty Oncology Referral Priority Routine General Notes Bailey Patten 02/19/2021 10:14:53 AM >Referral faxed. Reason New diagnosis of Left breast DCIS. Please evaluate for adjuvant treatment. Diagnosis 1 Ductal carcinoma in situ of left breast (D05.12) Referral Organization [facility] Breast Care Referring Provider First Name Melva Referring Provider Last Name Raoul Referring Provider Specialty Surgery Referred Provider William Westfall Referred Provider Specialty Radiation Oncology Referral Priority Routine General Notes Bailey Patten 02/19/2021 10:17:41 AM >Referral faxed VITAL SIGNS Weight 176 lbs Jan, Weight-kg 79.83 kg Jan, Height 66 in Jan, BMI 28.4 kg/m2 Jan, Heart Rate 62 /min Jan, Respiratory Rate 18 /min Jan, Temperature 97.3 degrees Fahrenheit Jan, Oximetry 99 Jan, Blood pressure systolic 120 mm Hg Jan, Blood pressure diastolic 78 mm Hg Jan, MEDICATIONS Medication SIG (Take, Route, Frequency, Duration) Notes Start Da te End Date Status Calcium + D 500-1000-40 MG-UNT-MCG as directed Orally Not-Taking Drisdol 99267 UNIT 1 capsule Orally weekly Not-Taking Multi Adult Gummies - Orally Not -Taking PROCEDURES No Information RESULTS No Results REASON FOR VISIT LEFT breast DCIS MEDICAL (GENERAL) HISTORY Type Description Date Medical History Uterine fibroids Medical History Left breast DCIS (01/2021) - Dr. Anthony sweet Medical History ASCVD risk 2.3% in 01/2021 Surgical History d&c's x3 - [facility] Surgical History Colonoscopy - normal, Dr. Calzada 02/2018 Surgical History Left breast stereotactic biopsy 02/10/21 Hospitalization History childbirth Goals Section No Information Health Concerns No Information MEDICAL EQUIPMENT No Information MENTAL STATUS No Information FUNCTIONAL STATUS No Information ASSESSMENTS Encounter Date Diagnosis Assessment Notes Treatment Notes Treatm ent Clinical Notes Jan, Ductal carcinoma in situ of left breast (ICD-10 - D05.12) see above Jan, Tubular carcinoma of left breast (ICD-10 - C50.9 12) LEFT BREAST CANCER (HYDROMARK 11:00 6CFN) Tubular Carcinoma and DCIS GRADE 1 ER 100% ME 30% HER2 negative cT1a (4mm on mammo) cN0 cM0 ANATOMICAL STAGE 1A CLINICAL PROGNOSTIC STAGE: 1A GENETICS: declined PLAN: 1: Will obtain MRI breasts to delineate extent of disease. Needs kidney function check prior 2. Will defer surgical procedure planning until MRI results are available 3. Preop testing/ medical clearance will need to be obtained prior to surgery 4. Genetic testing, declined today, patient will let us know if wants to pursue it at later time 5. Oncotype DX postop if invasive cancer meets testing criteria (current mammo nodule is 4 mm, which does not meet criteria for testing) 6. Referral to Medical Oncology 7. Referral to Radiation Oncology I reviewed the breast imaging with Ms. Mao. We have reviewed the overall breast cancer evaluation and staging. Based on the current information Ms. Mao's was found to have TUBULAR CARCINOMA WITH ASSOCIATED DCIS, GRADE 1, ER 100%, PR30% HER2 NEGATIVE. The mammographic extend of the tumor is 4mm which puts it in category T1a.I explained to the patient that tubular carcinoma is a form of invasive breast can cer with generally good prognosis. I am a little suprised with low ME % especially with grade 1 though. Ms. Mao does not have palpable axillary lymph nodes on exam. Based on this information, her lymph node status is described as N0. I am planning to bet MRI of the breast to asses the extent of disease and for preoperative planning. I have discussed various component of multidisciplinary approach to breast cancer which includes local treatments with surgery and radiation therapy and systemic treatments with antihormonal pill and possible chemotherapy. Regarding surgical component of the treatment, based on the current information, patient is a candidate for both breast conserving surgery and for mastectomy. I explained to her that, surgery carries risks and potential complications, most common of which are risk of bleeding, infection and injury to surrounding structures like skin, nipple, muscle, lung, nerves especially long thoracic nerve and thoracodorsal nerve, numbness of the skin and or nipple, scarring, bruising, hematomas, seromas, flap and/or nipple necrosis, lymphedema, nerve injury causing weakness in motor function of upper extremity or scapula, contour deformity, poor cosmetic outcomes and need for additional surgeries. Those risks were explained to the patient, and she expressed understanding. We have discussed that with breast conserving surgery there is a higher risk of locoregional recurrence of tumor because there is more ruby breast tissue left behind. The percentage of locoregional recurrence is lower with mastectomy than with breast conserving surgery but it is not zero as it is impossible to remove 100% of all breast tissue cells during mastectomy. There is also 10-20% chance of positive margins with breast conserving surgery which will warrant additional surgery to clear those margins. I also explained that with breast conserving surgery she may need to have radiation therapy in order to assure equal survival between the breast conservative treatment and mastectomy. Radiation therapy after mastectomy will be warranted only if the final mastectomy margins are positive or if lymph nodes are positive. We have also discussed that if she chooses mastectomy, she is entitled to reconstruction if she wishes to have it. Reconstruction options will be discussed in details with plastic surgeon. I have explained to the patient that reconstruction is considered part of breast cancer treatment and is covered by insurance. I explained that in cases of invasive cancer, we pursue sentinel lymph node biopsy in fit patients in addition to removal of the tumor from the breast. Since tubular carcinoma is a form of invasive cancer, we will pursue sentinel lymph node bx. I explained that this is done to test the very first lymph nodes draining the breast for presence of cancer. This will be done with radionucleotide injection and possibly with blue dye tracer. If the lymph nodes contain cancer, depending on what surgery was performed and how many lymph nodes are positive, additional surgery and/ or radiation therapy to axilla may be warranted as well. I will send a prescription for the EMLA cream to be applied to the affected nipple in order to decrease discomfort of injections. Regarding evaluation of contralateral breast, she had a screening mammogram done on 01/14/2021. This did not show any suspicious lesions in the contralateral breast. No additional evaluation of the contralateral breast is needed at this time. Since patient was diagnosed with breast cancer, she qualifies for genetic testing. I provided the genetic testing counseling -see the note below. At this time, patient declined genetic testing. She will let me know if she changes her mind. I discussed with the patient that Oncotype Dx is used to predict the probability of Hormone (+) Her2(-) cancer coming back. I explained that if the test comes back with a high score, chemotherapy may be considered. I will place referral for Medical Oncology. This appointment can be scheduled after surgery. I explained to the patient that she may need to follow up with radiation oncology if she wants to pursue breast conserving surgery or if lymph nodes or mastectomy margins are positive. I will place this referral. She can schedule appointment with [facility] after surgery. Finally, I informed patient that an appointment with her PCP will be made for her prior to surgery as we will need a surgical clearance, latest labs and imaging (CBC, BMP, CXR,EKG). Patient does not have PCP currently, hence, I will send a referral to [facility] to establish care. All questions were answered. Patient agrees with the plan Jan, Family history of cancer (ICD-10 - Z80.9) Patient participated in our Cancer screening program and she was not found to be at increased risk for cancer based on her family history. She does qualify for genetic testing base on personal Hx of breast ca. Jan, Genetic testing (ICD-10 - Z13.79) Patient participated in our cancer screening program and she was identified as a person who may be eligible for genetic testing due to her personal diagnosis of breast cancer. Possible outcomes of genetic testing were discussed with patient with emphasis on the fact that the majority of cancers are not related to germline mutations but are rather due to somatic mutations. I have explained that the genetic testing can come back as positive for specific pathological gene mutation, as negative, or as variant of unknown significance (VUS) which means that there is duration in the gene however we do not have enough information to determine the significance importance of this ulceration. I explained to the patient that we do not asked on VUS and treat them as negative until they are reclassified as pathologically significant mutation or benign alteration. We have discussed that regardless of test outcome patient cannot have her health insurance denied in the future. Patient would like to think about testing at this time. She will let us know what she decides Jan, Encounter to establish care with new doctor (ICD -10 - Z76.89) Patient does not have a current PCP. I will send a referral to [facility] to establish care Jan, Other Time spent face to face with the patient with over 50 % of time spent counseling the patient : 90 min Time spent reviewing the chart, requested consult information, radiology reports and imagin min TOTAL TIME SPENT FOR CARE OF THIS PATIENT AT THIS ENCOUNTER: 110 min I, Dr. Silveira, reviewed the medical note prepared by the scribe and confirm the findings and the discussed plan. PLAN OF TREATMENT Treatment Notes Assessment Notes Clinical Notes Ductal carcinoma in situ of left breast see above Tubular carcinoma of left breast LEFT BREAST CANCER (H YDROMARK 11:00 6CFN)Tubular Carcinoma and DCIS GRADE 1ER 100% ME 30% HER2 [id number] (4mm on mammo) cN0 [id number] STAGE 1ACLINICAL PROGNOSTIC STAGE: 1AGENETICS: declinedPLAN:1: Will obtain MRI breasts to delineate extent of disease. Needs kidney function check prior2. Will defer surgical procedure planning until MRI results are available3. Preop testing/ medical clearance will need to be obtained prior to surgery4. Genetic testing, declined today, patient will let us know if wants to pursue it at later time5. Oncotype DX postop if invasive cancer meets testing criteria (current mammo nodule is 4 mm, which does not meet criteria for testing)6. Referral to Medical Oncology7. Referral to Radiation OncologyI reviewed the breast imaging with Ms. Mao. We have reviewed the overall breast cancer evaluation and staging.Based on the current information Ms. Mao's was found to have TUBULAR CARCINOMA WITH ASSOCIATED DCIS, GRADE 1, ER 100%, PR30% HER2 NEGATIVE. The mammographic extend of the tumor is 4mm which puts it in category T1a.I explained to the patient that tubular carcinoma is a form of invasive breast cancer with generally good prognosis. I am a little suprised with low ME % especially with grade 1 though.Ms. Mao does not have palpable axillary lymph nodes on exam. Based on this information, her lymph node status is described as N0.I am planning to bet MRI of the breast to asses the extent of disease and for preoperative planning.I have discussed various component of multidisciplinary approach to breast cancer which includes local treatments with surgery and radiation therapy and systemic treatments with antihormonal pill and possible chemotherapy.Regarding surgical component of the treatment, based on the current information, patient is a candidate for both breast conserving surgery and for mastectomy.I explained to her that, surgery carries risks and potential complications, most common of which are risk of bleeding, infection and injury to surrounding structures like skin, nipple, muscle, lung, nerves especially long thoracic nerve and thoracodorsal nerve, numbness of the skin and or nipple, scarring, bruising, hematomas, seromas, flap and/or nipple necrosis, lymphedema, nerve injury causing weakness in motor function of upper extremity or scapula, contour deformity, poor cosmetic outcomes and need for additional surgeries. Those risks were explained to the patient, and she expressed understanding.We have discussed that with breast conserving surgery there is a higher risk of locoregional recurrence of tumor because there is more ruby breast tissue left behind. The percentage of locoregional recurrence is lower with mastectomy than with breast conserving surgery but it is not zero as it is impossible to remove 100% of all breast tis tata cells during mastectomy. There is also 10-20% chance of positive margins with breast conserving surgery which will warrant additional surgery to clear those margins. I also explained that with breast conserving surgery she may need to have radiation therapy in order to assure equal survival between the breast conservative treatment and mastectomy. Radiation therapy after mastectomy will be warranted only if the final mastectomy margins are positive or if lymph nodes are positive.We have also discussed that if she chooses mastectomy, she is entitled to reconstruction if she wishes to have it. Reconstruction options will be discussed in details with plastic surgeon. I have explained to the patient that reconstruction is considered part of breast cancer treatment and is covered by insurance.I explained that in cases of invasive cancer, we pursue sentinel lymph node biopsy in fit patients in addition to removal of the tumor from the breast. Since tubular carcinoma is a form of invasive cancer, we will pursue sentinel lymph node bx. I explained that this is done to test the very first lymph nodes draining the breast for presence of cancer. This will be done with radionucleotide injection and possibly with blue dye tracer. If the lymph nodes contain cancer, depending on what surgery was performed and how many lymph nodes are positive, additional surgery and/ or radiation therapy to axilla may be warranted as well. I will send a prescription for the EMLA cream to be applied to the affected nipple in order to decrease discomfort of injections.Regarding evaluation of contralateral breast, she had a screening mammogram done on 01/14/2021. This did not show any suspicious lesions in the contralateral breast. No additional evaluation of the contralateral breast is needed at this time.Since patient was diagnosed with breast cancer, she qualifies for genetic testing. I provided the genetic testing counseling -see the note below. At this time, patient declined genetic testing. She will let me know if she changes her mind.I discussed with the patient that Oncotype Dx is used to predict the probability of Hormone (+) Her2(-) cancer coming back. I explained that if the test comes back with a high score, chemotherapy may be considered.I will place referral for Medical Oncology. This appointment can be scheduled after surgery.I explained to the patient that she may need to follow up with radiation oncology if she wants to pursue breast conserving surgery or if lymph nodes or mastectomy margins are positive. I will place this referral. She can schedule appointment with [facility] after surgery.Finally, I informed patient that an appointment with her PCP will be made for her prior to surgery as we will need a surgical clearance, latest labs and imaging (CBC, BMP, CXR,EKG). Patient does not have PCP currently, hence, I will send a referral to [facility] to establish care.All questions were answered. Patient agrees with the plan Family history of cancer Patient participated in our Cancer screening program and she was not found to be at increased risk for cancer based on her family history. She does qualify for genetic testing base on personal Hx of breast ca. Genetic testing Patient participated in our cancer screening program and she was identified as a person who may be eligible for genetic testing due to her personal diagnosis of breast cancer.Possible outcomes of genetic testing were discussed with patient with emphasis on the fact that the majority of cancers are not related to germline mutations but are rather due to somatic mutations.I have explained that the genetic testing can come back as positive for specific pathological gene mutation, as negative, or as variant of unknown significance (VUS) which means that there is duration in the gene however we do not have enough information to determine the significance importance of this ulceration. I explained to the patient that we do not asked on VUS and treat them as negative until they are reclassified as pathologically significant mutation or benign alteration.We have discussed that regardless of test outcome patient cannot have her health insurance denied in the future.Patient would like to think about testing at this time. She will let us know what she decides Encounter to establish care with new doctor Patient do es not have a current PCP. [facility] Treatment Notes Test Name Order Date MRI Breast Bilat with and w/o Contrast 2021-02-19 Referrals Referral Date Details 2021-02-20 2021-02-20, [employer]E EXAMINER, establish pr imary care., Mayte Suero, [address] [place] [address], [place], [address], New diagnosis of Left breast DCIS with tubular carcinoma, grade 1 ER 100%, Pr30%, HER2 negative. Please evaluate for adjuvant treatment., Fatmata Sanders [facility] New diagnosis of Left breast DCIS. Please evaluate for adjuvant treatment., William Westfall Next Appt Details Provider Name:Yoli Freitasjac, 2022-01-19 10:00:00 AM, [address] [place] [address], , [place], [address], Provider Name:Mayte Suero, 2022-02-23 08:15:00 AM, [address] [place] [address], , [place], [address], Insurance Providers Payer Name Payer Address Payer Phone Insured Name Patient Relati onship to Insured Coverage Start Date Coverage End Date BCBS RUCHI BALDWIN PPO [id number] [facility] [id number] [address]
--- OUTSIDE RECORDS SUMMARY | 2021-04-14 06:38 | CCD ---
Author Author [facility] Organization [facility] Address Unknown Phone Unavailable Care Team Providers Care Field Map Technician Name Role Phone Shantel Yoli Unavailable PROBLEMS Type Condition ICD9-CM Code [id number] Code Onset Dates Condition S tatus W/U Status Risk SNOMED Code Notes Problem Vitamin d deficiency 268.9 Active confirmed 96863351 ALLERGIES Allergen (clinical drug ingredient) Drug/Non Drug Allergy do cumented on EMR Reaction Allergy Type Onset Date Status Compazine Confusion Drug Allergy Active ENCOUNTERS from 1962 to 2021-01-15 Encounter Location Date Provider Diagnosis [facility] [address] [place] [address] [place] [address] Dec, Yoli Funes Routine gynecologica l examination Z01.419 ; Breast cancer screening by mammogram Z12.31 and Screening for malignant neoplasm of cervix Z12.4 IMMUNIZATIONS No Information SOCIAL HISTORY Tobacco Use: Social History Observation Description Date Details (start date - stop date) Never Smoker Sex Assigned At : Social History Observation Description Sex Assigned At Unknown Language: Question Answer Notes Languages spoken: Occitan Sexual Hx: Question Answer Notes Had sex in the last 12 months (vaginal, oral, or anal)? Yes LMP: post menopause Have you ever had an STD? No with Men only Tobacco Use: Question Answer Notes Are you a: never smoker REASON FOR REFERRAL No Information VITAL SIGNS Weight 176.4 lbs Dec, Height 66 in Dec, BMI 28.47 kg/m2 Dec, Blood pressure systolic 122 mm Hg Dec, Blood pressure diastolic 74 mm Hg Dec, MEDICATIONS Medication SIG (Take, Route, Frequency, Duration) Notes Start Da te End Date Status Caltrate 600+D 600-800 MG-UNIT 1 tablet with a meal Orally Once a day Active Drisdol 53742 UNIT 1 capsule Orally weekly Not-Taking Zanaflex [...] month May, Not-Taking PROCEDURES No Information RESULTS Component Value Reference Range WWBC DIGITAL / KEREN BILATERAL MAMMO SCRE ENING (Ultrasound if indicated) Reviewed date:01/14/2021 11:50:15 Interpretation:cat 0 Performing Lab:[facility],[address]], ,[place] [address] REASON FOR VISIT ANNUAL/MAMMO MEDICAL (GENERAL) HISTORY Type Description Date Medical History uterine fibroids Surgical History d&c's x3 - [facility] Surgical History colonoscopy 03/24/18 Hospitalization History childbirth Goals Section No Information Health Concerns No Information MEDICAL EQUIPMENT No Information MENTAL STATUS No Information FUNCTIONAL STATUS No Information ASSESSMENTS Encounter Date Diagnosis Assessment Notes Treatment Notes Treatm ent Clinical Notes Dec, Routine gynecological examination (ICD-10 - Z01. 419) Pt to report any episodes of pmb or pelvic pain. Advise regular physical activity including weight bearing exercise most days of the week. Reviewed calcium rich foods. Dec, Breast cancer screening by mammogram (ICD-10 - Z 12.31) Reviewed screening intervals with mammography, recommend annual screening until age 75. Reviewed breast awareness, know what is normal for you so that you can detect any changes in the breasts, check breasts regularly, in a routine that you are comfortable with. Dec, Screening for malignant neoplasm of cervix (ICD- 10 - Z12.4) Reviewed ASCCP guidelines for pap screening and frequency, reviewed utility of HPV testing as well and when next pap will be due PLAN OF TREATMENT Treatment Notes Assessment Notes Clinical Notes Routine gynecological examination Pt to report any episodes of pmb or pelvic pain. Advise regular physical activity including weight bearing exercise most days of the week. Reviewed calcium rich foods. Breast cancer screening by mammogram Rev iewed screening intervals with mammography, recommend annual screening until age 75. Reviewed breast awareness, know what is normal for you so that you can detect any changes in the breasts, check breasts regularly, in a routine that you are comfortable with. Screening for malignant neoplasm of cervix Reviewed ASCCP guidelines for pap screening and frequency, reviewed utility of HPV testing as well and when next pap will be due Treatment Notes Test Name Order Date PAP REQUEST FOR SERVICE 2021-01-14 Next Appt Details 1 Year Reason:annual/mammo Provider Name:Yoli Freitasjac, 2022-01-19 10:00:00 AM, [address] [facility], , [place], [address], Follow Up:1 Yearannual/mammo Insurance Providers Payer Name Payer Address Payer Phone Insured Name Patient Relati onship to Insured Coverage Start Date Coverage End Date BCBS UTIMATTIE BALDWIN PPO [phone] [facility] [employer] [facility] [address] SHELDON MAO
--- OUTSIDE RECORDS SUMMARY | 2021-04-14 06:38 | CCD ---
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 [id number] Problem Vitamin D deficiency E55.9 Active confirmed 88682435 Problem Tubular carcinoma of left breast C50.912 Active confirmed [id number] ALLERGIES Allergen (clinical drug ingredient) Drug/Non Drug Allergy do cumented on EMR Reaction Allergy Type Onset Date Status Compazine Confusion Drug Allergy Active ENCOUNTERS from 1960 to 2021-03-20 Encounter Location Date Provider Diagnosis [facility] [address] [place] [address] [place] [address] Feb, Melva Silveira IMMUNIZATIONS No Information SOCIAL [...] 500-1000-40 MG-UNT-MCG as directed Orally Not-Taking Chaim 26955 UNIT 1 capsule Orally weekly Not-Taking Multi Adult Gummies - Orally Not -Taking PROCEDURES No Information RESULTS No Results REASON FOR VISIT 04/14/21 SURG AUTH MEDICAL (GENERAL) HISTORY Type Description Date Medical [...] Details Provider Name:Mayte Suero, 2021-04-07 01:45:00 PM, [address] [place], [place] [id number], [place], [address], Provider Name:Melva Silveira, 16-04-19 10:00:00 AM, [address] [place], [place] [address], [place], [address], Provider Name:Melva Silveira, 16-04-25 11:00:00 AM, [address] [place], [place] [address], [place], [address], Provider Name:Melva Silveira, 16-04-25 11:30:00 AM, [address] [place], [place] [address], [place], [address], Provider Name:Yoli Funes, 2022-01-19 10:00:00 AM, [address] [place], [place] [address], [place], [address], Provider Name:Mayte Suero, 2022-02-23 08:15:00 AM, [address] [place], [place] [id number], [place], [address], Insurance Providers Payer Name Payer Address Payer Phone Insured Name Patient Relati onship to Insured Coverage Start Date Coverage End Date [employer] [facility] [id number] [facility] [place] [address] SHELDON MAO self
--- OUTSIDE RECORDS SUMMARY | 2021-04-14 06:38 | CCD | Summary of Care ---
Author Author [facility] Organization [facility] Address Unknown Phone Unavailable Care Team Providers Care Auxiliary Powerplant Operator Name Role Phone PCP Unavailable Encounter Details Care Team Description Date Type Department 02/13/2021 [facility] Anatomical Encounter Pathology at [place] [address] [place] [address] Allergies Not on Filedocumented as of this encounter (statuses as of 02/14/2021) Medications Not on filedocumented as of this encounter (statuses as of 02/14/2021) Active Problems Not on filedocumented as of this encounter (statuses as of 02/14/2021) Immunizations Name Administration Dates Next Due documented as of this encounter Social History Date Tobacco Use Types Packs/Day Years Used Never Assessed Sex Assigned at Date Recorded Not on file documented as of this encounter Last Filed Vital Signs Not on filedocumented in this encounter Plan of Treatment Date/Time Name Type Priority Associated Diag noses 02/13/2021 2:52 PM EDT Surgical pathology Pathology and Routine consult Cytology Order Schedule Name Type Priority Associated Diag noses Once for 1 Occurrences starting 02/14/20 until 02/13/2021 Surgical pathology Pathology and Routine consult Cytology Health Maintenance Due Date Last Done Comments Hepatitis C Screening (B. 1960 0932-7939) MMR Vaccines (1 of - 1963 Standard series) Varicella Vaccines (1 of 1963 2 - 2-dose childhood series) DTaP,Tdap,and Td Vaccines 1969 (1 - Tdap) HIV Screening 1975 Cervical Cancer Screening 1983 5 years Breast Cancer Screening 2 2012 years Colon Cancer Screening 10 2012 yrs Influenza Vaccine 03/27/2021 Pneumococcal Vaccine: 65+ 2027 Years (1 of 1 - PPSV23) COVID-19 Vaccine Completed 08/01/2020, 07/04/2020 HIB Vaccines Aged Out No longer eligible based on patient's age to complete this topic Hepatitis A Vaccines Aged Out No longer eligibl e based on patient's age to complete this topic Hepatitis B Vaccines Aged Out No longer eligibl e based on patient's age to complete this topic IPV Vaccines Aged Out No longer eligible based on patient's age to complete this topic Pneumococcal Vaccine: Aged Out No longer eligib le based on patient's age to Pediatrics (0 to 5 Years) complete this topic and At-Risk Patients (6 to 64 Years) documented as of this encounter Results Not on filedocumented in this encounter
--- OUTSIDE RECORDS SUMMARY | 2021-04-14 06:38 | CCD ---
Author Author [facility] Organization [facility] Address Unknown Phone Unavailable Care Team Providers Care Investment Analyst Name Role Phone Shantel Yoli Unavailable PROBLEMS Type Condition ICD9-CM Code XDI14-DL Code Onset Dates Condition S tatus W/U Status Risk SNOMED Code Notes Problem Vitamin d deficiency 268.9 Active confirmed 17917103 Problem Abnormal mammogram of left breast R92.8 Active confirmed 596796614 ALLERGIES Allergen (clinical drug ingredient) Drug/Non Drug Allergy do cumented on EMR Reaction Allergy Type Onset Date Status Compazine Confusion Drug Allergy Active ENCOUNTERS from 1960 to 2021-01-26 Encounter Location Date Provider Diagnosis [facility] [address] [place] [address] [place] [address] Dec, Yoli Funes Abnormal mammogram o f left breast R92.8 IMMUNIZATIONS No Information SOCIAL HISTORY Tobacco Use: Social History Observation Description Date Details (start date - stop date) Never Smoker Sex Assigned At : Social History Observation Description Sex Assigned At Unknown Language: Question Answer Notes Languages spoken: Italian Sexual Hx: Question Answer Notes Had sex [...] meal Orally Once a day Active Drisdol 76045 UNIT 1 capsule Orally weekly Not-Taking Zanaflex [...] Information RESULTS No Results REASON FOR VISIT stereotactic biopsy MEDICAL (GENERAL) HISTORY Type Description Date Medical History uterine fibroids Surgical History d&c's x3 - [facility] Surgical History colonoscopy 03/24/18 Hospitalization History childbirth Goals Section No Information Health Concerns No Information MEDICAL EQUIPMENT No Information MENTAL STATUS No Information FUNCTIONAL STATUS No Information ASSESSMENTS Encounter Date Diagnosis Assessment Notes Treatment Notes Treatm ent Clinical Notes Dec, Abnormal mammogram of left breast (ICD-10 - R92. 8) PLAN OF TREATMENT Treatment Notes Test Name Order Date Post Stereo Images 2021-01-23 Stereotatic Breast Biopsy 2021-01-23 Next Appt Details Provider Name:Yoli Shantel, 2022-01-19 10:00:00 AM, [address] [facility], , [place], [address], Insurance Providers Payer Name Payer Address Payer Phone Insured Name Patient Relati onship to Insured Coverage Start Date Coverage End Date BCBS RUCHI BALDWIN PPO [phone] [facility] [employer] [place] [address] SHELDON MAO self
--- OUTSIDE RECORDS SUMMARY | 2021-04-14 06:39 | CCD ---
Author Author [facility] Organization [facility] Address Unknown Phone Unavailable Care Team Providers [facility] Attendant Name Role Phone NO, PCP Unavailable Unavailable Maring, Onel PA Unavailable Unavailable Maring, Onel PA Unavailable Unavailable Maring, Onel PA Unavailable Unavailable Maring, Onel PA Unavailable Unavailable Maring, Onel PA Unavailable Unavailable Maring, Onel PA Unavailable Unavailable Maring, Onel PA Unavailable Unavailable Maring, Onel PA Unavailable Unavailable Maring, Onel PA Unavailable Unavailable Maring, Onel PA Unavailable Unavailable Maring, Onel PA Unavailable Unavailable Maring, Onel PA Unavailable Unavailable Maring, Onel PA Unavailable Unavailable Maring, Onel PA Unavailable Unavailable Maring, Onel PA Unavailable Unavailable Maring, Onel PA Unavailable Unavailable Anyi More BUNK ASSEMBLER Unavailable Unavailable More, Anyi BUNK ASSEMBLER Unavailable Unavailable More, Anyi BUNK ASSEMBLER Unavailable Unavailable More, Anyi BUNK ASSEMBLER Unavailable Unavailable More, Anyi BUNK ASSEMBLER Unavailable Unavailable More, Anyi BUNK ASSEMBLER Unavailable Unavailable More, Anyi BUNK ASSEMBLER Unavailable Unavailable More, Anyi BUNK ASSEMBLER Unavailable Unavailable More, Anyi BUNK ASSEMBLER Unavailable Unavailable More, Anyi BUNK ASSEMBLER Unavailable Unavailable More, Anyi BUNK ASSEMBLER Unavailable Unavailable More, Anyi BUNK ASSEMBLER Unavailable Unavailable More, Anyi BUNK ASSEMBLER Unavailable Unavailable LETTIERE, A FEROZ PA Unavailable Unavailable LETTIERE, A FEROZ PA Unavailable Unavailable LETTIERE, A FEROZ PA Unavailable Unavailable LETTIERE, A FEROZ PA Unavailable Unavailable LETTIERE, A FEROZ PA Unavailable Unavailable LETTIERE, A FEROZ PA Unavailable Unavailable LETTIERE, A FEROZ PA Unavailable Unavailable LETTIERE, A FEROZ PA Unavailable Unavailable LETTIERE, A FEROZ PA Unavailable Unavailable LETTIERE, A FEROZ PA Unavailable Unavailable LETTIERE, A FEROZ PA Unavailable Unavailable LETTIERE, A FEROZ PA Unavailable Unavailable LETTIERE, A FEROZ PA Unavailable Unavailable LETTIERE, A FEROZ PA Unavailable Unavailable LETTIERE, A FEROZ PA Unavailable Unavailable LETTIERE, A FEROZ PA Unavailable Unavailable LETTIERE, A FEROZ PA Unavailable Unavailable LETTIERE, A FEROZ PA Unavailable Unavailable LETTIERE, A FEROZ PA Unavailable Unavailable LETTIERE, A FEROZ PA Unavailable Unavailable LETTIERE, A FEROZ PA Unavailable Unavailable LETTIERE, A FEROZ PA Unavailable Unavailable LETTIERE, A FEROZ PA Unavailable Unavailable LETTIERE, A FEROZ PA Unavailable Unavailable LETTIERE, A FEROZ PA Unavailable Unavailable LETTIERE, A FEROZ PA Unavailable Unavailable LETTIERE, A FEROZ PA Unavailable Unavailable LETTIERE, A FEROZ PA Unavailable Unavailable LETTIERE, A FEROZ PA Unavailable Unavailable LETTIERE, A FEROZ PA Unavailable Unavailable LETTIERE, A FEROZ PA Unavailable Unavailable Brielle IRVIN MD Unavailable Unavailable Brielle IRVIN MD Unavailable Unavailable Brielle IRVIN MD Unavailable Unavailable Brielle IRVIN MD Unavailable Unavailable Efren Oneill Unavailable [phone] Efren Oneill Unavailable [phone] Efren Oneill Unavailable [phone] Efren Oneill Unavailable [phone] Efren Oneill Unavailable [phone] Efren Oneill Unavailable [phone] AZALEA, L NORMAN BUNK ASSEMBLER Unavailable Unavailable AZALEA, L NORMAN BUNK ASSEMBLER Unavailable Unavailable AZALEA, L NORMAN BUNK ASSEMBLER Unavailable Unavailable AZALEA, L NORMAN BUNK ASSEMBLER Unavailable Unavailable AZALEA, L NORMAN BUNK ASSEMBLER Unavailable Unavailable AZALEA, L NORMAN BUNK ASSEMBLER Unavailable Unavailable AZALEA, L NORMAN BUNK ASSEMBLER Unavailable Unavailable AZALEA, L NORMAN BUNK ASSEMBLER Unavailable Unavailable AZALEA, L NORMAN BUNK ASSEMBLER Unavailable Unavailable AZALEA, L NORMAN BUNK ASSEMBLER Unavailable Unavailable AZALEA, L NORMAN BUNK ASSEMBLER Unavailable Unavailable AZALEA, L NORMAN BUNK ASSEMBLER Unavailable Unavailable AZALEA, L NORMAN BUNK ASSEMBLER Unavailable Unavailable AZALEA, L NORMAN BUNK ASSEMBLER Unavailable Unavailable AZALEA, L NORMAN BUNK ASSEMBLER Unavailable Unavailable AZALEA, L NORMAN BUNK ASSEMBLER Unavailable Unavailable AZALEA, L NORMAN BUNK ASSEMBLER Unavailable Unavailable AZALEA, L NORMAN BUNK ASSEMBLER Unavailable Unavailable AZALEA, L NORMAN BUNK ASSEMBLER Unavailable Unavailable AZALEA, L NORMAN BUNK ASSEMBLER Unavailable Unavailable AZALEA, L NORMAN BUNK ASSEMBLER Unavailable Unavailable AZALEA, L NORMAN BUNK ASSEMBLER Unavailable Unavailable AZALEA, L NORMAN BUNK ASSEMBLER Unavailable Unavailable AZALEA, L NORMAN BUNK ASSEMBLER Unavailable Unavailable AZALEA, L NORMAN BUNK ASSEMBLER Unavailable Unavailable AZALEA, L NORMAN BUNK ASSEMBLER Unavailable Unavailable AZALEA, L NORMAN BUNK ASSEMBLER Unavailable Unavailable AZALEA, L NORMAN BUNK ASSEMBLER Unavailable Unavailable AZALEA, L NORMAN BUNK ASSEMBLER Unavailable Unavailable Brielle IRVIN MD Unavailable Unavailable Brielle IRVIN MD Unavailable Unavailable Brielle IRVIN MD Unavailable Unavailable Brielle IRVIN MD Unavailable Unavailable BUMBANAC, A STAR BUNK ASSEMBLER Unavailable Unavailable BUMBANAC, A STAR BUNK ASSEMBLER Unavailable Unavailable BUMBANAC, A STAR BUNK ASSEMBLER Unavailable Unavailable BUMBANAC, A STAR BUNK ASSEMBLER Unavailable Unavailable BUMBANAC, A STAR BUNK ASSEMBLER Unavailable Unavailable BUMBANAC, A STAR BUNK ASSEMBLER Unavailable Unavailable BUMBANAC, A STAR BUNK ASSEMBLER Unavailable Unavailable BUMBANAC, A STAR BUNK ASSEMBLER Unavailable Unavailable BUMBANAC, A STAR BUNK ASSEMBLER Unavailable Unavailable BUMBANAC, A STAR BUNK ASSEMBLER Unavailable Unavailable BUMBANAC, A STAR BUNK ASSEMBLER Unavailable Unavailable BUMBANAC, A STAR BUNK ASSEMBLER Unavailable Unavailable BUMBANAC, A STAR BUNK ASSEMBLER Unavailable Unavailable BUMBANAC, A STAR BUNK ASSEMBLER Unavailable Unavailable BUMBANAC, A STAR BUNK ASSEMBLER Unavailable Unavailable BUMBANAC, A STAR BUNK ASSEMBLER Unavailable Unavailable BUMBANAC, A STAR BUNK ASSEMBLER Unavailable Unavailable BUMBANAC, A STAR BUNK ASSEMBLER Unavailable Unavailable BUMBANAC, A STAR BUNK ASSEMBLER Unavailable Unavailable BUMBANAC, A STAR BUNK ASSEMBLER Unavailable Unavailable BUMBANAC, A STAR BUNK ASSEMBLER Unavailable Unavailable BUMBANAC, A STAR BUNK ASSEMBLER Unavailable Unavailable BUMBANAC, A STAR BUNK ASSEMBLER Unavailable Unavailable BUMBANAC, A STAR BUNK ASSEMBLER Unavailable Unavailable BUMBANAC, A STAR BUNK ASSEMBLER Unavailable Unavailable BUMBANAC, A STAR BUNK ASSEMBLER Unavailable Unavailable BUMBANAC, A STAR BUNK ASSEMBLER Unavailable Unavailable BUMBANAC, A STAR BUNK ASSEMBLER Unavailable Unavailable BUMBANAC, A STAR BUNK ASSEMBLER Unavailable Unavailable BUMBANAC, A STAR BUNK ASSEMBLER Unavailable Unavailable BUMBANAC, A STAR BUNK ASSEMBLER Unavailable Unavailable Skipton, E Mayte MD Unavailable Unavailable Skipton, E Mayte MD Unavailable Unavailable Skipton, E Mayte MD Unavailable Unavailable Skipton, E Mayte MD Unavailable Unavailable Skipton, E Mayte MD Unavailable Unavailable Skipton, E Mayte MD Unavailable Unavailable Skipton, E Mayte MD Unavailable Unavailable Skipton, E Mayte MD Unavailable Unavailable Skipton, E Mayte MD Unavailable Unavailable Skipton, E Mayte MD Unavailable Unavailable Skipton, E Mayte MD Unavailable Unavailable Skipton, E Mayte MD Unavailable Unavailable Skipton, E Mayte MD Unavailable Unavailable Skipton, E Mayte MD Unavailable Unavailable Skipton, E Mayte MD Unavailable Unavailable Skipton, E Mayte MD Unavailable Unavailable Skipton, E Mayte MD Unavailable Unavailable Skipton, E Mayte MD Unavailable Unavailable Skipton, E Mayte MD Unavailable Unavailable Skipton, E Mayte MD Unavailable Unavailable Skipton, E Mayte MD Unavailable Unavailable Skipton, E Mayte MD Unavailable Unavailable Skipton, E Mayte MD Unavailable Unavailable Skipton, E Mayte MD Unavailable Unavailable Skipton, E Mayte MD Unavailable Unavailable Skipton, E Mayte MD Unavailable Unavailable Skipton, E Mayte MD Unavailable Unavailable Skipton, E Mayte MD Unavailable Unavailable Skipton, E Mayte MD Unavailable Unavailable Skipton, E Mayte MD Unavailable Unavailable Skipton, E Mayte MD Unavailable Unavailable Skipton, E Mayte MD Unavailable Unavailable Skipton, E Mayte MD Unavailable Unavailable Skipton, E Mayte MD Unavailable Unavailable Skipton, E Mayte MD Unavailable Unavailable Skipton, E Mayte MD Unavailable Unavailable Skipton, E Mayte MD Unavailable Unavailable Skipton, E Mayte MD Unavailable Unavailable Skipton, E Mayte MD Unavailable Unavailable Skipton, E Mayte MD Unavailable Unavailable Skipton, E Mayte MD Unavailable Unavailable Skipton, E Mayte MD Unavailable Unavailable Skipton, E Mayte MD Unavailable Unavailable Skipton, E Mayte MD Unavailable Unavailable Skipton, E Mayte MD Unavailable Unavailable Skipton, E Mayte MD Unavailable Unavailable Skipton, E Mayte MD Unavailable Unavailable Skipton, E Mayte MD Unavailable Unavailable Skipton, E Mayte MD Unavailable Unavailable Skipton, E Mayte MD Unavailable Unavailable Skipton, E Mayte MD Unavailable Unavailable Skipton, E Mayte MD Unavailable Unavailable Skipton, E Mayte MD Unavailable Unavailable Skipton, E Mayte MD Unavailable Unavailable Skipton, E Mayte MD Unavailable Unavailable Skipton, E Mayte MD Unavailable Unavailable Skipton, E Mayte MD Unavailable Unavailable Skipton, E Mayte MD Unavailable Unavailable Skipton, E Mayte MD Unavailable Unavailable Skipton, E Mayte MD Unavailable Unavailable Re-disclosure Warning The records that you are about to access may contain information from federally-assisted alcohol or drug abuse programs. If such information is present, then the following federally mandated warning applies: This information has been disclosed to you from records protected by federal confidentiality rules (42 CFR part 2). The federal rules prohibit you from making any further disclosure of this information unless further disclosure is expressly permitted by the written consent of the person to whom it pertains or as otherwise permitted by 42 CFR part 2. A general authorization for the release of medical or other information is NOT sufficient for this purpose. The Federal rules restrict any use of the information to criminally investigate or prosecute any alcohol or drug abuse patient.The records that you are about to access may contain highly sensitive health information, the redisclosure of which is protected by Article 27-F of the [facility] Public Health law. If you continue you may have access to information: Regarding HIV / AIDS; Provided by facilities licensed or operated by the [facility] Office of Mental Health; or Provided by the [facility] Office for People With Developmental Disabilities. If such information is present, then the following [facility] mandated warning applies: This information has been disclosed to you from confidential records which are protected by state law. State law prohibits you from making any further disclosure of this information without the specific written consent of the person to whom it pertains, or as otherwise permitted by law. Any unauthorized further disclosure in violation of state law may result in a fine or [place] [facility] sentence or both. A general authorization for the release of medical or other information is NOT sufficient authorization for further disc losure. Family History Family Member Name Family Member Gender Family Member Status Date o f Status Description Data Source(s) Unknown Unknown Problem [facility]ENT ([facility]) Unknown Female Problem MED[facility] ([facility]) Unknown Unknown Problem [facility] ([facility] Encounters Encounter Providers Location Date Indications Data Source(s ) Outpatient Attender: Mayte Suero MDConsultant: Mayte murrieta MD 04/07/2021 03:23:00 PM EDT - 04/07/2021 04:23:00 PM EDT [facility] [place] [address] [facility] [address] 04/07/2021 12:00:00 AM EDT [facility] [place] [address] [facility] [address] 03/20/2021 12:00:00 AM EDT [facility] [place] [address] [facility] [address] 03/16/2021 12:00:00 AM EDT eCW1 ([facility]) [place] [address] [facility] [address] 02/24/2021 12:00:00 AM EDT [facility]CW1 ([facility] Outpatient Attender: Mayte Suero MDConsultant: PCP NO 02/23/2021 07:02:00 AM EDT - 02/23/2021 08:02:00 AM EDT [facility] [place] [address] [facility] [address] 02/20/2021 12:00:00 AM EDT [facility]CW1 [facility] [place] [address] [facility] [address] 02/19/2021 12:00:00 AM EDT eCW1 ([facility]) Outpatient Admitter: NORMAN GAFFNEYJAC NPReferrer: NORMAN GAFFNEY MOISE HOLDEN 02/13/2021 12:00:00 AM EDT Malignant neoplasm of unspecified site o f unspecified female breast [facility] Malignant neoplasm of unspecified site o f unspecified female breast [place] [address] [facility] [facility] [address] 02/13/2021 12:00:00 AM EDT eCW1 ([facility]) [place] [address] [facility] [address] 01/23/2021 12:00:00 AM EDT eCW1 ([facility]) [place] [address] [facility] [facility] [address] 01/14/2021 12:00:00 AM EDT eCW1 ([facility]) [place] [address] [facility] [address] 01/14/2021 12:00:00 AM EDT eCW1 ([facility]) Outpatient Attender: FEROZ IRVIN MD ER-LAB-PNP 11/29/2020 03:02:00 PM T [facility] Outpatient Attender: FEROZ URIOSTEGUI eferrer: FEROZ IRVIN MDConsultant: PCP NO 11/20/2020 12:29:00 PM EDT - 11/20/2020 12:39:00 PM T [facility] Patient discharged. Outpatient Attender: FEROZ URIOSTEGUI eferrer: FEROZ IRVIN MDConsultant: PCP NO 11/14/2020 04:25:00 PM EDT - 11/14/2020 04:35:00 PM T [facility] Patient discharged. Outpatient Attender: FEROZ URIOSTEGUI eferrer: FEROZ IRVIN MDConsultant: PCP NO 11/09/2020 11:31:00 AM EDT - 11/09/2020 11:41:00 AM T [facility] Patient discharged. Outpatient Attender: FEROZ URIOSTEGUI eferrer: FEROZ GONSALVESonsultant: PCP NO 11/03/2020 04:06:00 PM EDT - 11/03/[facility] FEROZ URIOSTEGUI eferrer: FEROZ IRVIN MDConsultant: PCP NO 10/27/2020 02:57:00 PM EDT - 10/27/2020 03:07:00 PM [facility] Outpatient Attender: FEROZ URIOSTEGUI eferrer: FEROZ IRVIN MDConsultant: PCP NO 10/20/2020 02:01:00 PM EDT - 10/20/2020 [facility] Efren Oneill 10/16 08:01:10 AM EDT - 10/16/2020 08:19:40 AM EDT [facility] ([facility] ) Outpatient Attender: Onel PAUL 10/14/19 10:02:16 AM EDT - 10/13/2020 10:47:16 AM [facility] Outpatient Attender: FEROZ URIOSTEGUI eferrer: FEROZ IRVIN MDConsultant: PCP NO 10/03/2020 11:27:00 AM EDT - 10/03/2020 11:37:00 AM [facility] Patient discharged. Outpatient Attender: FEROZ URIOSTEGUI eferrer: FEROZ IRVIN MDConsultant: PCP NO 09/26/2020 03:57:00 PM EDT - 09/26/2020 04:07:00 PM [facility] Patient discharged. Outpatient Attender: FEROZ URIOSTEGUI eferrer: FEROZ IRVIN MDConsultant: PCP NO 09/20/2020 04:54:00 PM EDT - 09/20/2020 05:04:00 PM [facility] Outpatient Attender: FEROZ URIOSTEGUI eferrer: FEROZ IRVIN MDConsultant: PCP NO 09/08/2020 02:52:00 PM EDT - 09/08/2020 03:02:00 PM [facility] Outpatient Attender: FEROZ URIOSTEGUI eferrer: FEROZ IRVIN MDConsultant: PCP NO 09/04/2020 01:42:00 PM EST - 09/04/2020 01:52:00 PM [facility] Outpatient Attender: FEROZ IRVIN MDA ttender: ZACK RAND NPReferrer: FEROZ BRANDEE MDConsultant: PCP NO 09/01/2020 03:27:0 0 PM EST - 09/01/2020 03:37:00 PM [facility] Outpatient Attender: FEROZ URIOSTEGUI eferrer: FEROZ IRVIN MDConsultant: PCP NO 08/25/2020 03:00:00 PM EST - 08/25/2020 03:10:00 PM [facility] Outpatient Attender: FEROZ URIOSTEGUI eferrer: FEROZ IRVIN MDConsultant: PCP NO 08/17/2020 11:22:00 AM EST - 08/17/2020 11:32:00 AM [facility] Outpatient Attender: FEROZ URIOSTEGUI eferrer: FEROZ IRVIN MDConsultant: PCP NO 08/08/2020 11:45:00 AM EST - 08/08/2020 11:55:00 AM [facility] Patient discharged. Outpatient Attender: FEROZ IRVIN MDConsultant: PCP NO 08/02/2020 08:04:03 AM [facility] Outpatient Attender: FEROZ URIOSTEGUI eferrer: FEROZ IRVIN MDConsultant: PCP NO 07/30/2020 12:48:00 PM [facility] - 07/30/2020 12:58:00 PM [facility] Patient discharged. Outpatient Attender: FEROZ URIOSTEGUI eferrer: FEROZ IRVIN MDConsultant: PCP NO 07/25/2020 11:04:00 AM [facility] - 07/25/2020 11:14:00 AM [facility] Patient discharged. Outpatient Attender: FEROZ URIOSTEGUI eferrer: FEROZ IRVIN MDConsultant: PCP NO 07/17/2020 11:06:00 AM [facility] - 07/17/2020 11:16:00 AM [facility] Patient discharged. Outpatient Attender: FEROZ URIOSTEGUI eferrer: FEROZ IRVIN MDConsultant: PCP NO 07/11/2020 11:04:00 AM [facility] - 07/11/2020 11:14:00 AM [facility] Patient discharged. Outpatient Attender: FEROZ URIOSTEGUI eferrer: FEROZ IRVIN MDConsultant: PCP NO 07/06/2020 04:55:00 PM EST - 07/06/2020 05:05:00 PM [facility] Outpatient Attender: FEROZ IRVIN MDConsultant: PCP NO 07/04/2020 01:33:00 PM [facility] Outpatient Attender: FEROZ URIOSTEGUI eferrer: FEROZ IRVIN MDConsultant: PCP NO 06/29/2020 04:58:00 PM EST - 06/29/2020 05:08:00 PM [facility] Outpatient Attender: Anyi More NP Fifi Maria Neha jones 06/28/2020 07:50:00 AM EST [facility] ([facility]) Outpatient Attender: FEROZ Gardnerjanell Maria Prim emilia 06/26/2020 10:45:00 AM EST [facility] ([facility]) Outpatient Attender: FEROZ URIOSTEGUI eferrer: FEROZ IRVIN MDConsultant: PCP NO 06/22/2020 11:38:00 AM [facility] - 06/22/2020 11:48:00 AM [facility] Outpatient Attender: FEROZ URIOSTEGUI eferrer: FEROZ IRVIN MDConsultant: PCP NO 06/16/2020 04:24:00 PM [facility] - 06/16/2020 04:34:00 PM [facility] Outpatient Attender: FEROZ URIOSTEGUI eferrer: FEROZ IRVIN MDConsultant: PCP NO 06/09/2020 02:44:00 PM [facility] - 06/09/2020 02:54:00 PM [facility] Outpatient Attender: FEROZ URIOSTEGUI eferrer: FEROZ IRVIN MDConsultant: PCP NO 06/02/2020 04:23:00 PM EST - 06/02/2020 04:33:00 PM [facility] Outpatient Attender: FEROZ URIOSTEGUI eferrer: FEROZ IRVIN MDConsultant: PCP NO 05/27/2020 05:05:00 PM [facility] - 05/27/2020 05:15:00 PM [facility] Outpatient Attender: FEROZ URIOSTEGUI eferrer: FEROZ IRVIN MDConsultant: PCP NO 05/12/2020 04:56:00 PM [facility] - 05/12/2020 05:06:00 PM [facility] Outpatient Attender: FEROZ URIOSTEGUI eferrer: FEROZ IRVIN MDConsultant: PCP NO 05/05/2020 03:11:00 PM EST - 05/05/2020 03:21:00 PM [facility] Outpatient Attender: FEROZ IRVIN MDR eferrer: FEROZ IRVIN MDConsultant: PCP NO 04/28/2020 06:42:00 PM EST - 04/28/2020 06:52:00 PM [facility] Outpatient Attender: FEROZ IRVIN MDR eferrer: FEROZ IRVIN MDConsultant: PCP NO 04/21/2020 05:20:00 PM EDT - 04/21/2020 05:30:00 PM [facility] Outpatient Attender: FEROZ IRVIN MDR eferrer: FEROZ IRVIN MDConsultant: PCP NO 04/15/2020 01:57:00 PM EDT - 04/15/2020 02:07:00 PM [facility] Outpatient Attender: FEROZ IRVIN MDR eferrer: FEROZ IRVIN MDConsultant: PCP NO 04/08/2020 01:53:00 PM EDT - 04/08/2020 02:03:00 PM [facility] Outpatient Attender: FEROZ IRVIN MDR eferrer: FEROZ IRVIN MDConsultant: PCP NO 03/31/2020 02:22:00 PM EDT - 03/31/2020 02:32:00 PM [facility] Outpatient Attender: FEROZ IRVIN MDR eferrer: FEROZ IRVIN MDConsultant: PCP NO 03/24/2020 02:59:00 PM EDT - 03/24/2020 03:09:00 PM [facility] Outpatient Attender: FEROZ IRVIN MDR eferrer: FEROZ IRVIN MDConsultant: PCP NO 03/18/2020 02:17:00 PM EDT - 03/18/2020 02:27:00 PM [facility] Outpatient Attender: FEROZ IRVIN MDR eferrer: FEROZ IRVIN MDConsultant: PCP NO 03/10/2020 03:18:00 PM EDT - 03/10/2020 03:28:00 PM [facility] Outpatient Attender: FEROZ IRVIN MDR eferrer: FEROZ IRVIN MDConsultant: PCP NO 03/03/2020 01:34:00 PM EDT - 03/03/2020 01:44:00 PM [facility] Outpatient Attender: FEROZ URIOSTEGUI eferrer: FEROZ IRVIN MDConsultant: PCP NO 02/25/2020 04:26:00 PM EDT - 02/25/2020 04:36:00 PM EDT [facility] Outpatient Attender: FEROZ IRVIN MDR eferrer: FEROZ IRVIN MDConsultant: PCP NO 02/18/2020 05:42:00 PM EDT - 02/18/2020 05:52:00 PM EDT [facility] Outpatient Attender: FEROZ IRVIN MDR eferrer: FEROZ IRVIN MDConsultant: PCP NO 02/12/2020 04:46:00 PM EDT - 02/12/2020 04:56:00 PM EDT [facility] Immunizations Vaccine Date Status Description Data Source(s) COVID-19 VACCINE Moderna 08/01/2020 12:00:00 AM EST completed [facility] Vaccine Series Complete: YESThis Data wa s Submitted to [facility] Via [employer]. COVID-19 VACCINE Moderna 07/04/2020 12:00:00 AM EST completed [facility] Vaccine Series Complete: NOThis Data was Submitted to [facility] [employer]. Medications Medication Brand Name Start Date Product Form Dose Route Admi nistrative Instructions Pharmacy Instructions Status Indications Reaction Description Data Source(s) 2.5-2.5 % 02/25/2021 12:00:00 AM EDT cream 30 APPLY ENTIRE TUBE TO LEFT NIPPLE AND SURROUNDING TISSUE 2 HOURS PRIOR TO COMING FOR SURGERY COVER WITH PLASTIC APPLY ENTIRE TUBE TO LEFT NIPPLE AND [place] ROUNDING TISSUE 2 HOURS PRIOR TO COMING FOR SURGERY COVER WITH PLASTIC SOLD: 02/27/2021 [facility] doxycycline hyclate 100 MG Oral Tablet DOXYCYCLINE HYCLATE 0 10/13/2020 12:00:00 AM EDT tablet 28 TAKE ONE TABLET BY MOUTH TWI CE A DAY FOR 14 DAYS TAKE ONE TABLET BY MOUTH TWICE A DAY FOR 14 DAYS SOLD: 10/13/2020 [facility] Dexamethasone 1 MG/ML / Neomycin 3.5 MG/ ML / Polymyxin B 80731 UNT/ML Ophthalmic Suspension 3.5mg/mL-10,000 unit/mL-0.1 % NEOMYCIN/POLYMYXIN B/DEXAMETHA 10/13/2020 12:00:00 AM EDT drops,suspension 5 INST ILL 2 DROPS INTO THE AFFECTED EYE(S) THREE TIMES A DAY FOR 5 DAYS INSTILL 2 DROPS INTO THE AFFECTED EYE(S) THREE TIMES A DAY FOR 5 DAYS SOLD: 10/13/2020 [facility] 875 mg 05/19/2020 12:00:00 AM EST tablet 20 TAKE ONE TABLET BY MOUTH EVERY 12 HOURS FOR 10 DAYS TAKE ONE TABLET BY MOUTH EVERY 12 HOURS FOR 10 DAYS SO LD: 05/19/2020 [facility] Insurance Providers Payer name Policy type / Coverage type Policy ID Covered republican ID Covered republican's relationship to cabral Policy Cabral Plan Information [employer] Ins () Workers Compensation [id number] Self [id number] [employer] Ins () Workers Compensation [id number] Self [facility] Workers Compensation [id number] Self [facility] [id number] SP [id number] [facility] [employer] [id number] Self [id number] [employer] [id number] Self [id number] [employer] - [place] [employer] [id number] Self [id number] [facility] Commercial Insurance Co. [id number] Self [id number] [employer] [place] 18 [employer] [place] BLUE CROSS -O/P UNAVAILABLE UNAVAILABLE BLUE CROSS BLUE SHIELD -O/P UNAVAILABLE UNAVAILABLE ANSI-Commercial [id number] ANSI-Medicaid [id number] [facility] [id number] SP [id number] [facility] [id number] SP [id number] [facility] [id number] SP [id number] [facility] [id number] SP [id number] [employer] [id number] SP [id number] OTHER WORKERS COMPENSATION [id number] SP [id number] [facility] [id number] SP [id number] [employer] O [id number] S [id number] [facility] Health Maintenance Organization [place] [place] [id number] Self [id number] [facility] O [id number] S [id number] [facility] Health Maintenance Organization (O) [id number] Self [id number] [employer] Medigap Part B [id number] Family Dependent [id number] [facility] [place] Medigap Part B [id number] Self [id number] [facility] Health Maintenance Organization (O) [id number] Self [id number] [facility] Health Maintenance Organization (O) [id number] Self [employer] MANAGEMENT CHASITY [id number] SP [id number] [facility] [id number] SP [id number] [facility] [id number] SP [id number] [employer] INSURANCE [employer] O [id number] S [id number] [facility] [place] [facility] [id number] S [id number] [facility] PHY [id number] SP [id number] [facility] P [id number] S [id number] [employer] [place] 200/700 [id number] SP [id number] [employer] [place] PPO 302/307 [id number] SP [id number] BLUE CROSS BLUE SHIELD -O/P [id number] 18 [id number] [employer] [place] PPO 302/307 [id number] SP [id number] [employer] B [id number] S RACHEL [id number] [employer] [place] PPO 302/307 [id number] SP [id number] UN COMMUNITY PLAN [facility] [id number] SP [id number] [employer] [facility] [facility] BS [id number] 18 [id number] BLUE CROSS BLUE SHIELD -O/P [id number] 18 [id number] Problems, Conditions, and Diagnoses Code Display Name Description Problem Type Effective Dates Data Source(s) E23609 Encounter for other preprocedural examin ation Encounter for other preprocedural examination Diagnosis 04/07/2021 03:23:00 PM EDT [facility] E559 Vitamin D deficiency, unspecified Vitamin D defi ciency, unspecified Diagnosis 02/23/2021 07:02:00 AM EDT [facility] [id number] Encounter for screening for lipoid disor ders Encounter for screening for lipoid disorders Diagnosis 02/23/2021 07:02:00 AM EDT [facility] Z131 Encounter for screening for diabetes mey litus Encounter for screening for diabetes mellitus Diagnosis 02/23/2021 07:02:00 AM EDT [facility] C50.919 Malignant neoplasm of unspecified site o f unspecified female breast Malignant neoplasm of unspecified site of unspecified female breast Diagnosis 02/13/2021 02:50:00 PM T [facility] Z1152 ENCOUNTER FOR SCREENING FOR COVID-19 ENCOUNTER F OR SCREENING FOR COVID-19 Diagnosis 11/14/2020 04:25:00 PM EDT [facility] Z1159 Encounter for screening for other viral diseases Encounter for screening for other viral diseases Diagnosis 06/29/2020 04:58:00 PM EST [facility] E55.9 [id number] Vitamin D deficiency Problem 02/20/2021 12:0 0:00 AM EDT eCW1 ([facility]) C50.912 [id number] Tubular carcinoma of left breast Problem 02/19/2021 12:00:00 AM EDT eCW1 ([facility]) D05.12 [id number] 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 Problem 02/19/2021 12:00:00 AM EDT eCW1 ([facility]) D05.12 [id number] 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 Problem 02/13/2021 12:00:00 AM EDT eC1 ([facility]) R92.8 [id number] Abnormal mammogram of left breast Problem 01/23/2021 12:00:00 AM EDT eCW1 ([facility]) Surgeries/Procedures No Information Results ID Date Data Source [id number] 04/07/2021 04:15:00 PM EDT [facility] Name Value Range Interpretation Code Description Data Darleen rce(s) Supporting Document(s) COMPREHENSIVE METABOLIC PANEL [facility] COMPREHENSIVE METABOLIC PANEL Sodium [Moles/volume] in Serum or Plasma 140 mEq/L 134 - 153 [facility] Potassium [Moles/volume] in Serum or Plasma 4.5 mEq/L 3.6 - 5.0 [facility] Chloride [Moles/volume] in Serum or Plasma 105 mEq/L 98 - 107 [facility] Carbon dioxide, total [Moles/volume] in Serum or Plasma 25 MEQ/L 22 - 30 [facility] Glucose [Mass/volume] in Serum or Plasma 90 MG/DL 70 - 99 [facility] BUN 21 MG/DL 7 - [facility] Creatinine [Mass/volume] in Serum or Plasma 0.7 MG/DL 0.7 - 1.5 [facility] BUN/CREAT 30 8 - 27 [facility] Protein [Mass/volume] in Serum or Plasma 7.1 G/DL 6.3 - 8.2 [facility] Albumin [Mass/volume] in Serum or Plasma 4.9 G/DL 3.9 - 5.0 [facility] Globulin [Mass/volume] in Serum by calculation 2.2 GM/DL 2.4 - 3.2 L [facility] A/G RATIO 2.2 0.8 - 2.0 H [facility] Calcium [Mass/volume] in Serum or Plasma 10.2 MG/DL 8.4 - 10.2 [facility] Bilirubin.total [Mass/volume] in Serum or Plasma <0.7 MG/DL 0.2 - 1.3 [facility] Alkaline phosphatase [Enzymatic activity/volume] in Serum or Plasma 64 U/L 38 - 126 [facility] Aspartate aminotransferase [Enzymatic activity/volume] in Serum or Plasma 18 U/L 5 - 40 [facility] Alanine aminotransferase [Enzymatic activity/volume] in Seru m or Plasma 18 U/L 7 - 56 [facility] Anion gap 3 in Serum or Plasma 10.0 mmol/L 8.0 - 16.0 [facility] AGE 61 yrs [facility] NON-AA GFR >60 mL/min [facility] AFR AMER GFR >60 mL/min [facility] spital Male GFR In terprentation 20-49 yrs >60 mL/min Normal 50-59 yrs >56 mL/min Normal 60-69 yrs >49 mL/min Normal 70-79yrs >42 mL/min Normal 80 and above >35 mL/min Normal Female GFR Interpretation 20-39 yrs >60 mL/min Normal 40-49 yrs >58 mL/min Normal 50-59 yrs >51 mL/min Normal 60-69 yrs >45 mL/min Normal 70-79 yrs >39 mL/min Normal 80 and above >32 mL/min Normal ID Date Data Source [id number] 04/07/2021 03:53:00 PM EDT [facility] Name Value Range Interpretation Code Description Data Darleen rce(s) Supporting Document(s) CBC NO DIFF [facility] COMPLETE BLOOD COUNT Leukocytes [#/volume] in Blood by Automated count 8.8 10^3/uL 4.2 - 1 1.0 [facility] Erythrocytes [#/volume] in Blood by Automated count 4.75 10^6/uL 4. 20 - 5.40 [facility] Hemoglobin [Mass/volume] in Blood 15.0 g/dL 12.0 - 16.0 [facility] Hematocrit [Volume Fraction] of Blood by Automated count 45.1 % 3 7.0 - 47.0 [facility] Erythrocyte mean corpuscular volume [Entitic volume] by Auto mated count 94.9 fL 81.0 - 101 [facility] Erythrocyte mean corpuscular hemoglobin [Entitic mass] by Automated count 31.6 pg 27.0 - 34.0 [facility] Erythrocyte mean corpuscular hemoglobin concentration [Mass/volume] by Automated count 33.3 g/dL 31.0 - 36.0 [facility] Erythrocyte distribution width [Ratio] by Automated count 12.2 % 11.5 - 14.5 [facility] Platelets [#/volume] in Blood by Automated count 270 10^3/uL 150 - 45 0 [facility] Platelet mean volume [Entitic volume] in Blood by Automated count 9.4 fL 7.4 - 10.4 [facility] ID Date Data Source [id number] 02/24/2021 11:16:00 AM EDT [facility] Name Value Range Interpretation Code Description Data Darleen rce(s) Supporting Document(s) Calcidiol [Moles/volume] in Serum or Plasma 39 NG/ML [facility] VITAMIN-D(2 5HYDROXY) Deficiency: <=20 ng/ml Insufficiency: 21-29 ng/ml Preferred level: => 30 ng/ml ID Date Data Source [id number] 02/23/2021 09:12:00 AM EDT [facility] Name Value Range Interpretation Code Description Data Darleen rce(s) Supporting Document(s) CVE PANEL [facility] LIPID PANEL Cholesterol [Mass/volume] in Serum or Plasma 237 MG/DL 131 - 200 H [facility] Deprecated Triglyceride [Mass/volume] in Serum or Plasma 88 MG/DL 3 5 - 160 [facility] HDL 74 MG/DL 29 - 86 [facility] Cholesterol in LDL [Mass/volume] in Serum or Plasma by Direc t assay 166 mg/dL 65 - 175 [facility] Cholesterol.total/Cholesterol in HDL [Mass Ratio] in Serum o r Plasma 3.2 3.2 - 4.4 L [facility] LDL/HDL 2.24 1.47 - 3.22 [facility] CVE RISK CHOL/HDL LDL/HDLMEN: 1/2 AVERAGE 3.43 1.00 AVERAGE 4.97 3.55 2X AVERAGE 9.55 6.25 3X AVERAGE 23.99 7.99WOMEN: 1/2 AVERAGE 3.27 1.47 AVERAGE 4.44 3.22 2X AVERAGE 7.05 5.03 3X AVERAGE 11.04 6.14 ID Date Data Source [id number] 02/23/2021 09:12:00 AM EDT [facility] Name Value Range Interpretation Code Description Data Darleen rce(s) Supporting Document(s) COMPREHENSIVE METABOLIC PANEL [facility] COMPREHENSIVE METABOLIC PANEL Sodium [Moles/volume] in Serum or Plasma 142 mEq/L 134 - 153 [facility] Potassium [Moles/volume] in Serum or Plasma 3.8 mEq/L 3.6 - 5.0 [facility] Chloride [Moles/volume] in Serum or Plasma 104 mEq/L 98 - 107 [facility] Carbon dioxide, total [Moles/volume] in Serum or Plasma 29 MEQ/L 22 - 30 [facility] Glucose [Mass/volume] in Serum or Plasma 102 MG/DL 70 - 99 H [facility] BUN 21 MG/DL 7 - 21 [facility] Creatinine [Mass/volume] in Serum or Plasma 0.7 MG/DL 0.7 - 1.5 [facility] BUN/CREAT 30 8 - 27 H [facility] Protein [Mass/volume] in Serum or Plasma 6.8 G/DL 6.3 - 8.2 [facility] Albumin [Mass/volume] in Serum or Plasma 4.8 G/DL 3.9 - 5.0 [facility] Globulin [Mass/volume] in Serum by calculation 2.0 GM/DL 2.4 - 3.2 L [facility] A/G RATIO 2.4 0.8 - 2.0 H [facility] Calcium [Mass/volume] in Serum or Plasma 9.8 MG/DL 8.4 - 10.2 [facility] Bilirubin.total [Mass/volume] in Serum or Plasma <0.7 MG/DL 0.2 - 1.3 [facility] Alkaline phosphatase [Enzymatic activity/volume] in Serum or Plasma 54 U/L 38 - 126 [facility] Aspartate aminotransferase [Enzymatic activity/volume] in Serum or Plasma 16 U/L 5 - 40 [facility] Alanine aminotransferase [Enzymatic activity/volume] in Seru m or Plasma 16 U/L 7 - 56 [facility] Anion gap 3 in Serum or Plasma 9.0 mmol/L 8.0 - 16.0 [facility] AGE 60 yrs [facility] NON-AA GFR >60 mL/min [facility] AFR AMER GFR >60 mL/min [facility] sp[facility] Male GFR In terprentation 20-49 yrs >60 mL/min Normal 50-59 yrs >56 mL/min Normal 60-69 yrs >49 mL/min Normal 70-79yrs >42 mL/min Normal 80 and above >35 mL/min Normal Female GFR Interpretation 20-39 yrs >60 mL/min Normal 40-49 yrs >58 mL/min Normal 50-59 yrs >51 mL/min Normal 60-69 yrs >45 mL/min Normal 70-79 yrs >39 mL/min Normal 80 and above >32 mL/min Normal ID Date Data Source [id number] 02/16/2021 04:01:00 PM EDT [facility] Surgical Pathology ReportName: SHELDON MAOMRN: [id number] Number: [id number] Date: 02/13/2021 00:00Received Date: 02/13/2021 14:52Physician(s): NORMAN TRISTAN,LUIS ANTONIO VOGT,BITApecimen(s) ReceivedA: Material received for consultation, [facility], [id number] HistoryTubular carcinoma with DCIS. Do ER, FL, and HER2. Do FISH if equivocal. DiagnosisIMMUNOHISTOCHEMISTRY, LEFT BREAST, BIOPSY (OUTSIDE CASE [id number],02/10/21): ESTROGEN RECEPTORS: Positive (strong, 100%).PROGESTERONE RECEPTORS: Positive (weak to moderate, 30%).HER2: Negative (0). Electronically Signed By Juan Bray M.D., Attending Pathologist02/16/2021 16:01:03 Unless 'gross-only' is specified, the final diagnosis is based on amicroscopic examination of personnel representative sections of tissue.Gross DescriptionReceived from [facility] in [place], [place], are 2 H and Estained slides and 2 paraffin blocks, labeled [id number], with thecorresponding pathology report. This report may include one or more immunohistochemical stain results thatuse analyte specific reagents. All positive and negative controls havebeen reviewed by the attending pathologist and are satisfactory. The testswere developed and their performance characteristics determined by [facility] Pathology department. They have not been cleared or approved by the USFood and Drug Administration. The FDA has determined that such clearanceor approval is not necessary. Name Value Range Interpretation Code Description Data Darleen rce(s) Supporting Document(s) ID Date Data Source WW DIGITAL / KEREN BILATERAL MAMMO SCREENING (Ultraso und if indicated) 01/14/2021 12:00:00 AM EDT eCW1 ([facility]) Name Value Range Interpretation Code Description Data Darleen rce(s) Supporting Document(s) [facility] DIGITAL / KEREN BILAT ERAL MAMMO SCREENING (Ultrasound if indicated) eCW1 ([facility]) ID Date Data Source [id number] 11/30/2020 08:06:00 AM EDT [facility] Name Value Range Interpretation Code Description Data Darleen rce(s) Supporting Document(s) COVID19 RHEONIX Negative NEGATIVE N [facility] The Rheonix COVID-19 MDx Assay is an end point RT-PCR assayintended for the qualitative detection of nucleic acid mzoeIREG-YrI-6 virus. Positive results are indicative of thepresence of SARS-CoV-2 RNA; clinical correlation withpatient history and other diagnostic information isnecessary to determine patient infection status. Negativeresults do not preclude SARS-CoV-2 infection and should notbe used as the sole basis for patient management decisions. The Rheonix MDx Assay is only for use under the Food andDrug Administration's Emergency Use Authorization. ID Date Data Source [id number] 11/20/2020 05:00:00 PM EDT [facility] Name Value Range Interpretation Code Description Data Darleen rce(s) Supporting Document(s) SARS coronavirus 2 RNA Not Detected [facility] This lab was ordered by [facility] d[facility]otah and reported by [facility]. ID Date Data Source [id number] 11/22/2020 01:23:00 PM EDT [facility] Name Value Range Interpretation Code Description Data Darleen rce(s) Supporting Document(s) SARS-CoV-2, AMY Not Detected Not Detected [facility] This nucleic acid amplification test was developed and its performancecharacteristics determined by [employer]. Nucleic acidamplification tests include RT-PCR and TMA. This test has not beenFDA cleared or approved. This test has been authorized by FDA underan Emergency Use Authorization (EUA). This test is only authorizedfor the duration of time the declaration that circumstances existjustifying the authorization of the emergency use of in vitrodiagnostic tests for detection of SARS-CoV-2 virus and/or diagnosisof COVID-19 infection under section 564(b)(1) of the Act, 21 U.S.C.360bbb-3(b) (1), unless the authorization is terminated or revokedsooner.When diagnostic testing is negative, the possibility of a falsenegative result should be considered in the context of a patient'srecent exposures and the presence of clinical signs and symptomsconsistent with COVID- 19. An individual without symptoms of COVID-19and who is not shedding SARS-CoV-2 virus would expect to have anegative (not detected) result in this assay. SARS-CoV-2, AMY 2 DAY TAT Performed [facility] ID Date Data Source [id number] 11/14/2020 11:00:00 PM EDT [facility] Name Value Range Interpretation Code Description Data Darleen rce(s) Supporting Document(s) SARS coronavirus 2 RNA Not Detected [facility] This lab was ordered by [facility] Don claire and reported by [facility]. ID Date Data Source [id number] 11/17/2020 06:29:00 AM EDT [facility] Name Value Range Interpretation Code Description Data Darleen rce(s) Supporting Document(s) SARS-CoV-2, AMY Not Detected Not Detected [facility] This nucleic acid amplification test was developed and its performancecharacteristics determined by [employer]. Nucleic acidamplification tests include RT-PCR and TMA. This test has not beenFDA cleared or approved. This test has been authorized by FDA underan Emergency Use Authorization (EUA). This test is only authorizedfor the duration of time the declaration that circumstances existjustifying the authorization of the emergency use of in vitrodiagnostic tests for detection of SARS-CoV-2 virus and/or diagnosisof COVID-19 infection under section 564(b)(1) of the Act, 21 U.S.C.360bbb-3(b) (1), unless the authorization is terminated or revokedsooner.When diagnostic testing is negative, the possibility of a falsenegative result should be considered in the context of a patient'srecent exposures and the presence of clinical signs and symptomsconsistent with COVID- 19. An individual without symptoms of COVID-19and who is not shedding SARS-CoV-2 virus would expect to have anegative (not detected) result in this assay. ID Date Data Source [id number] 11/09/2020 09:50:00 PM EDT [facility] Name Value Range Interpretation Code Description Data Darleen rce(s) Supporting Document(s) SARS coronavirus 2 RNA Not Detected [facility] This lab was ordered by [facility] and reported by [facility]. ID Date Data Source [id number] 11/12/2020 07:00:00 AM EDT [facility] Name Value Range Interpretation Code Description Data Darleen rce(s) Supporting Document(s) SARS-CoV-2, AMY Not Detected Not Detected [facility] This nucleic acid amplification test was developed and its performancecharacteristics determined by [employer]. Nucleic acidamplification tests include RT-PCR and TMA. This test has not beenFDA cleared or approved. This test has been authorized by FDA underan Emergency Use Authorization (EUA). This test is only authorizedfor the duration of time the declaration that circumstances existjustifying the authorization of the emergency use of in vitrodiagnostic tests for detection of SARS-CoV-2 virus and/or diagnosisof COVID-19 infection under section 564(b)(1) of the Act, 21 U.S.C.360bbb-3(b) (1), unless the authorization is terminated or revokedsooner.When diagnostic testing is negative, the possibility of a falsenegative result should be considered in the context of a patient'srecent exposures and the presence of clinical signs and symptomsconsistent with COVID- 19. An individual without symptoms of COVID-19and who is not shedding SARS-CoV-2 virus would expect to have anegative (not detected) result in this assay. SARS-CoV-2, AMY 2 DAY TAT Performed [facility] ID Date Data Source [id number] 11/03/2020 10:30:00 AM EDT [facility] Name Value Range Interpretation Code Description Data Darleen rce(s) Supporting Document(s) SARS coronavirus 2 RNA Not Detected [facility] This lab was ordered by [facility] dakotah and reported by [facility]. ID Date Data Source [id number] 11/06/2020 07:22:00 AM EDT [facility] Name Value Range Interpretation Code Description Data Darleen rce(s) Supporting Document(s) SARS-CoV-2, AMY Not Detected Not Detected [facility] This nucleic acid amplification test was developed and its performancecharacteristics determined by [employer]. Nucleic acidamplification tests include RT-PCR and TMA. This test has not beenFDA cleared or approved. This test has been authorized by FDA underan Emergency Use Authorization (EUA). This test is only authorizedfor the duration of time the declaration that circumstances existjustifying the authorization of the emergency use of in vitrodiagnostic tests for detection of SARS-CoV-2 virus and/or diagnosisof COVID-19 infection under section 564(b)(1) of the Act, 21 U.S.C.360bbb-3(b) (1), unless the authorization is terminated or revokedsooner.When diagnostic testing is negative, the possibility of a falsenegative result should be considered in the context of a patient'srecent exposures and the presence of clinical signs and symptomsconsistent with COVID- 19. An individual without symptoms of COVID-19and who is not shedding SARS-CoV-2 virus would expect to have anegative (not detected) result in this assay. SARS-CoV-2, AMY 2 DAY TAT Performed [facility] ID Date Data Source [id number] 10/27/2020 10:38:00 AM EDT [facility] Name Value Range Interpretation Code Description Data Darleen rce(s) Supporting Document(s) SARS coronavirus 2 RNA Not Detected [facility]. ID Date Data Source [id number] 10/30/2020 06:21:00 AM EDT [facility] Name Value Range Interpretation Code Description Data Darleen rce(s) Supporting Document(s) SARS-CoV-2, AMY Not Detected Not Detected [facility] This nucleic acid amplification test was developed and its performancecharacteristics determined by [employer]. Nucleic acidamplification tests include RT-PCR and TMA. This test has not beenFDA cleared or approved. This test has been authorized by FDA underan Emergency Use Authorization (EUA). This test is only authorizedfor the duration of time the declaration that circumstances existjustifying the authorization of the emergency use of in vitrodiagnostic tests for detection of SARS-CoV-2 virus and/or diagnosisof COVID-19 infection under section 564(b)(1) of the Act, 21 U.S.C.360bbb-3(b) (1), unless the authorization is terminated or revokedsooner.When diagnostic testing is negative, the possibility of a falsenegative result should be considered in the context of a patient'srecent exposures and the presence of clinical signs and symptomsconsistent with COVID- 19. An individual without symptoms of COVID-19and who is not shedding SARS-CoV-2 virus would expect to have anegative (not detected) result in this assay. SARS-CoV-2, AMY 2 DAY TAT Performed [facility] ID Date Data Source [id number] 10/20/2020 10:50:00 AM EDT [facility] Name Value Range Interpretation Code Description Data Darleen rce(s) Supporting Document(s) SARS coronavirus 2 RNA Not Detected [facility] [place] This lab was ordered by [facility] and reported by [facility]. ID Date Data Source [id number] 10/22/2020 09:14:00 PM EDT [facility] Name Value Range Interpretation Code Description Data Darleen rce(s) Supporting Document(s) SARS-CoV-2, AMY Not Detected Not Detected [facility] This nucleic acid amplification test was developed and its performancecharacteristics determined by [facility]. Nucleic acidamplification tests include RT-PCR and TMA. This test has not beenFDA cleared or approved. This test has been authorized by FDA underan Emergency Use Authorization (EUA). This test is only authorizedfor the duration of time the declaration that circumstances existjustifying the authorization of the emergency use of in vitrodiagnostic tests for detection of SARS-CoV-2 virus and/or diagnosisof COVID-19 infection under section 564(b)(1) of the Act, 21 U.S.C.360bbb-3(b) (1), unless the authorization is terminated or revokedsooner.When diagnostic testing is negative, the possibility of a falsenegative result should be considered in the context of a patient'srecent exposures and the presence of clinical signs and symptomsconsistent with COVID- 19. An individual without symptoms of COVID-19and who is not shedding SARS-CoV-2 virus would expect to have anegative (not detected) result in this assay. SARS-CoV-2, AMY 2 DAY TAT Performed [facility] ID Date Data Source [id number] 10/15/2020 03:10:00 AM EDT [facility] Name Value Range Interpretation Code Description Data Darleen rce(s) Supporting Document(s) COVID-19 RT-PCR [employer] SWAB Not Detected Not Detected [facility] A not detected (negative) test result fo r this test means that SARS-CoV-2 RNA was not present in the specimen above the limit ofdetection. Laboratory test results should always be considered in thecontext of clinical observations and epidemiological data in making afinal diagnosis and patient management decisions. Results will bereported to government agencies as required.This test has received Emergency Use Authorization (EUA). We will continue to follow federal and state requirements for COVID-19 reporting. This test has been authorized only for the detection of RNAfrom SARS-CoV-2 virus and diagnosis of SARS-CoV-2 virus infection, notfor any other viruses or pathogens. This test is only authorized for the duration of the declaration that circumstances exist justifying the authorization of the emergency use of in vitro diagnostic tests for detection of SARS-CoV-2 virus and/or diagnosis of SARS-CoV-2 virusinfection under section 564(b)(1) of the Act, 21 U.S.C. section 360bbb-3(b)(1), unless the authorization is terminated or revoked sooner. We will continue to follow federal and state requirements for both notification of results and any confirmatory testing that is required by another agency. This test was developed and its performance characteristics determined by [employer] and verified at [facility]. It has not been cleared or approved by the U.S. Food and Drug Administration for diagnostic use. This test has been authorized by FDA under an EUA for use by authorized laboratories. Results should be used in conjunction with clinical findings, and should not form the sole basis for a diagnosis or treatment decision. Methods: SARS-CoV-2 Multiplex RT-PCR Assay ID Date Data Source [id number] 10/13/2020 10:30:00 AM EDT [facility] Name Value Range Interpretation Code Description Data Darleen rce(s) Supporting Document(s) SARS-CoV-2 (COVID-19) N gene [Presence] in Respiratory specimen by AMY with probe detection NEGATIVE [facility] This lab was ordered by [facility] and reported by [facility]. ID Date Data Source [id number] 10/13/2020 12:00:00 AM EDT [facility] Name Value Range Interpretation Code Description Data Darleen rce(s) Supporting Document(s) Carestart Rapid COVID Antigen Test Negative [facility] This lab was reported by [facility]. ID Date Data Source [id number] 10/03/2020 05:00:00 PM EDT [facility] Name Value Range Interpretation Code Description Data Darleen rce(s) Supporting Document(s) SARS coronavirus 2 RNA Not Detected [facility] This lab was ordered by [facility] and reported by [facility]. ID Date Data Source [id number] 10/07/2020 01:49:00 PM EDT [facility] Name Value Range Interpretation Code Description Data Darleen rce(s) Supporting Document(s) SARS-CoV-2, AMY Not Detected Not Detected [facility] This nucleic acid amplification test was developed and its performancecharacteristics determined by [facility]. Nucleic acidamplification tests include RT-PCR and TMA. This test has not beenFDA cleared or approved. This test has been authorized by FDA underan Emergency Use Authorization (EUA). This test is only authorizedfor the duration of time the declaration that circumstances existjustifying the authorization of the emergency use of in vitrodiagnostic tests for detection of SARS-CoV-2 virus and/or diagnosisof COVID-19 infection under section 564(b)(1) of the Act, 21 U.S.C.360bbb-3(b) (1), unless the authorization is terminated or revokedsooner.When diagnostic testing is negative, the possibility of a falsenegative result should be considered in the context of a patient'srecent exposures and the presence of clinical signs and symptomsconsistent with COVID- 19. An individual without symptoms of COVID-19and who is not shedding SARS-CoV-2 virus would expect to have anegative (not detected) result in this assay. ID Date Data Source [id number] 09/26/2020 02:10:00 PM EDT [facility] Name Value Range Interpretation Code Description Data Darleen rce(s) Supporting Document(s) SARS coronavirus 2 RNA Not Detected [facility] This lab was ordered by [facility] and reported by [facility]. ID Date Data Source [id number] 09/29/2020 07:14:00 AM EDT [facility] Name Value Range Interpretation Code Description Data Darleen rce(s) Supporting Document(s) SARS-CoV-2, AMY Not Detected Not Detected [facility] This nucleic acid amplification test was developed and its performancecharacteristics determined by [facility]. Nucleic acidamplification tests include RT-PCR and TMA. This test has not beenFDA cleared or approved. This test has been authorized by FDA underan Emergency Use Authorization (EUA). This test is only authorizedfor the duration of time the declaration that circumstances existjustifying the authorization of the emergency use of in vitrodiagnostic tests for detection of SARS-CoV-2 virus and/or diagnosisof COVID-19 infection under section 564(b)(1) of the Act, 21 U.S.C.360bbb-3(b) (1), unless the authorization is terminated or revokedsooner.When diagnostic testing is negative, the possibility of a falsenegative result should be considered in the context of a patient'srecent exposures and the presence of clinical signs and symptomsconsistent with COVID- 19. An individual without symptoms of COVID-19and who is not shedding SARS-CoV-2 virus would expect to have anegative (not detected) result in this assay. ID Date Data Source [id number] 09/20/2020 11:00:00 AM EDT [facility] Name Value Range Interpretation Code Description Data Darleen rce(s) Supporting Document(s) SARS coronavirus 2 RNA Not Detected [facility] This lab was ordered by [facility] and reported by [facility]. ID Date Data Source [id number] 09/23/2020 06:57:00 AM EDT [facility] Name Value Range Interpretation Code Description Data Darleen rce(s) Supporting Document(s) SARS-CoV-2, AMY Not Detected Not Detected [facility] This nucleic acid amplification test was developed and its performancecharacteristics determined by [facility]. Nucleic acidamplification tests include RT-PCR and TMA. This test has not beenFDA cleared or approved. This test has been authorized by FDA underan Emergency Use Authorization (EUA). This test is only authorizedfor the duration of time the declaration that circumstances existjustifying the authorization of the emergency use of in vitrodiagnostic tests for detection of SARS-CoV-2 virus and/or diagnosisof COVID-19 infection under section 564(b)(1) of the Act, 21 U.S.C.360bbb-3(b) (1), unless the authorization is terminated or revokedsooner.When diagnostic testing is negative, the possibility of a falsenegative result should be considered in the context of a patient'srecent exposures and the presence of clinical signs and symptomsconsistent with COVID- 19. An individual without symptoms of COVID-19and who is not shedding SARS-CoV-2 virus would expect to have anegative (not detected) result in this assay. SARS-CoV-2, AMY 2 DAY TAT Performed [facility] ID Date Data Source [id number] 09/08/2020 11:02:00 AM EDT [facility] Name Value Range Interpretation Code Description Data Darleen rce(s) Supporting Document(s) SARS coronavirus 2 RNA Not Detected [facility] This lab was ordered by [facility]aire and reported by [facility]. ID Date Data Source [id number] 09/10/2020 09:05:00 PM EDT [facility] Name Value Range Interpretation Code Description Data Darleen rce(s) Supporting Document(s) SARS-CoV-2, AMY Not Detected Not Detected [facility] This nucleic acid amplification test was developed and its performancecharacteristics determined by [facility]. Nucleic acidamplification tests include RT-PCR and TMA. This test has not beenFDA cleared or approved. This test has been authorized by FDA underan Emergency Use Authorization (EUA). This test is only authorizedfor the duration of time the declaration that circumstances existjustifying the authorization of the emergency use of in vitrodiagnostic tests for detection of SARS-CoV-2 virus and/or diagnosisof COVID-19 infection under section 564(b)(1) of the Act, 21 U.S.C.360bbb-3(b) (1), unless the authorization is terminated or revokedsooner.When diagnostic testing is negative, the possibility of a falsenegative result should be considered in the context of a patient'srecent exposures and the presence of clinical signs and symptomsconsistent with COVID- 19. An individual without symptoms of COVID-19and who is not shedding SARS-CoV-2 virus would expect to have anegative (not detected) result in this assay. ID Date Data Source [id number] 09/04/2020 10:30:00 AM EST [facility] Name Value Range Interpretation Code Description Data Darleen rce(s) Supporting Document(s) SARS coronavirus 2 RNA Not Detected [facility] This lab was ordered by [facility] and reported by [facility]. ID Date Data Source [id number] 09/07/2020 05:46:00 PM EDT [facility] Name Value Range Interpretation Code Description Data Darleen rce(s) Supporting Document(s) SARS-CoV-2, AMY Not Detected Not Detected [facility] Testing was performed using the moshe(R) SARS-CoV-2 test.This nucleic acid amplification test was developed and its performancecharacteristics determined by [facility]. Nucleic acidamplification tests include RT-PCR and TMA. This test has not beenFDA cleared or approved. This test has been authorized by FDA underan Emergency Use Authorization (EUA). This test is only authorizedfor the duration of time the declaration that circumstances existjustifying the authorization of the emergency use of in vitrodiagnostic tests for detection of SARS-CoV-2 virus and/or diagnosisof COVID-19 infection under section 564(b)(1) of the Act, 21 U.S.C.360bbb-3(b) (1), unless the authorization is terminated or revokedsooner.When diagnostic testing is negative, the possibility of a falsenegative result should be considered in the context of a patient'srecent exposures and the presence of clinical signs and symptomsconsistent with COVID- 19. An individual without symptoms of COVID-19and who is not shedding SARS-CoV-2 virus would expect to have anegative (not detected) result in this assay. ID Date Data Source [id number] 09/01/2020 11:30:00 AM EST [facility] Name Value Range Interpretation Code Description Data Darleen rce(s) Supporting Document(s) SARS coronavirus 2 RNA We are UNABLE to reliably de termine a result for the specimen due to [facility] This lab was ordered by [facility] and reported by [facility]. ID Date Data Source [id number] 09/04/2020 06:39:00 AM EST [facility] Name Value Range Interpretation Code Description Data Darleen rce(s) Supporting Document(s) SARS-CoV-2, AMY COMMENT Not Detected [facility] We are UNABLE to reliably determine a re sult for the specimen due tothe presence of PCR inhibitor(s) in the specimen submitted. Ifclinically indicated, please recollect an additional specimen fortesting.This nucleic acid amplification test was developed and its performancecharacteristics determined by [facility]. Nucleic acidamplification tests include RT-PCR and TMA. This test has not beenFDA cleared or approved. This test has been authorized by FDA underan Emergency Use Authorization (EUA). This test is only authorizedfor the duration of time the declaration that circumstances existjustifying the authorization of the emergency use of in vitrodiagnostic tests for detection of SARS-CoV-2 virus and/or diagnosisof COVID-19 infection under section 564(b)(1) of the Act, 21 U.S.C.360bbb-3(b) (1), unless the authorization is terminated or revokedsooner.When diagnostic testing is negative, the possibility of a falsenegative result should be considered in the context of a patient'srecent ex posures and the presence of clinical signs and symptomsconsistent with COVID-19. An individual without symptoms of COVID-19and who is not shedding SARS-CoV-2 virus would expect to have anegative (not detected) result in this assay. ID Date Data Source [id number] 08/25/2020 12:20:00 PM EST [facility] Name Value Range Interpretation Code Description Data Darleen rce(s) Supporting Document(s) SARS coronavirus 2 RNA Not Detected [facility] This lab was ordered by [facility] and reported by [facility]. ID Date Data Source [id number] 08/28/2020 06:16:00 AM EST [facility] Name Value Range Interpretation Code Description Data Darleen rce(s) Supporting Document(s) SARS-CoV-2, AMY Not Detected Not Detected [facility] This nucleic acid amplification test was developed and its performancecharacteristics determined by [facility]. Nucleic acidamplification tests include RT-PCR and TMA. This test has not beenFDA cleared or approved. This test has been authorized by FDA underan Emergency Use Authorization (EUA). This test is only authorizedfor the duration of time the declaration that circumstances existjustifying the authorization of the emergency use of in vitrodiagnostic tests for detection of SARS-CoV-2 virus and/or diagnosisof COVID-19 infection under section 564(b)(1) of the Act, 21 U.S.C.360bbb-3(b) (1), unless the authorization is terminated or revokedsooner.When diagnostic testing is negative, the possibility of a falsenegative result should be considered in the context of a patient'srecent exposures and the presence of clinical signs and symptomsconsistent with COVID- 19. An individual without symptoms of COVID-19and who is not shedding SARS-CoV-2 virus would expect to have anegative (not detected) result in this assay. ID Date Data Source [id number] 08/17/2020 10:35:00 AM [facility] Name Value Range Interpretation Code Description Data Darleen rce(s) Supporting Document(s) SARS coronavirus 2 RNA Not Detected [facility] This lab was ordered by [facility] and reported by [facility]. ID Date Data Source [id number] 08/18/2020 11:32:00 AM EST [facility] Name Value Range Interpretation Code Description Data Darleen rce(s) Supporting Document(s) SARS-CoV-2, AMY Not Detected Not Detected [facility] This nucleic acid amplification test was developed and its performancecharacteristics determined by [facility]. Nucleic acidamplification tests include RT-PCR and TMA. This test has not beenFDA cleared or approved. This test has been authorized by FDA underan Emergency Use Authorization (EUA). This test is only authorizedfor the duration of time the declaration that circumstances existjustifying the authorization of the emergency use of in vitrodiagnostic tests for detection of SARS-CoV-2 virus and/or diagnosisof COVID-19 infection under section 564(b)(1) of the Act, 21 U.S.C.360bbb-3(b) (1), unless the authorization is terminated or revokedsooner.When diagnostic testing is negative, the possibility of a falsenegative result should be considered in the context of a patient'srecent exposures and the presence of clinical signs and symptomsconsistent with COVID- 19. An individual without symptoms of COVID-19and who is not shedding SARS-CoV-2 virus would expect to have anegative (not detected) result in this assay. ID Date Data Source [id number] 08/12/2020 06:41:00 AM EST [facility] Name Value Range Interpretation Code Description Data Darleen rce(s) Supporting Document(s) SARS-CoV-2, AMY Not Detected Not Detected [facility] This nucleic acid amplification test was developed and its performancecharacteristics determined by [facility]. Nucleic acidamplification tests include RT-PCR and TMA. This test has not beenFDA cleared or approved. This test has been authorized by FDA underan Emergency Use Authorization (EUA). This test is only authorizedfor the duration of time the declaration that circumstances existjustifying the authorization of the emergency use of in vitrodiagnostic tests for detection of SARS-CoV-2 virus and/or diagnosisof COVID-19 infection under section 564(b)(1) of the Act, 21 U.S.C.360bbb-3(b) (1), unless the authorization is terminated or revokedsooner.When diagnostic testing is negative, the possibility of a falsenegative result should be considered in the context of a patient'srecent exposures and the presence of clinical signs and symptomsconsistent with COVID- 19. An individual without symptoms of COVID-19and who is not shedding SARS-CoV-2 virus would expect to have anegative (not detected) result in this assay. ID Date Data Source [id number] 07/30/2020 06:35:00 PM EST [facility] Name Value Range Interpretation Code Description Data Darleen rce(s) Supporting Document(s) SARS coronavirus 2 RNA Not Detected [facility] This lab was ordered by [facility] and reported by [facility]. ID Date Data Source [id number] 08/01/2020 02:44:00 PM EST [facility] Name Value Range Interpretation Code Description Data Darleen rce(s) Supporting Document(s) SARS-CoV-2, AMY Not Detected Not Detected [facility] This nucleic acid amplification test was developed and its performancecharacteristics determined by [facility]. Nucleic acidamplification tests include RT-PCR and TMA. This test has not beenFDA cleared or approved. This test has been authorized by FDA underan Emergency Use Authorization (EUA). This test is only authorizedfor the duration of time the declaration that circumstances existjustifying the authorization of the emergency use of in vitrodiagnostic tests for detection of SARS-CoV-2 virus and/or diagnosisof COVID-19 infection under section 564(b)(1) of the Act, 21 U.S.C.360bbb-3(b) (1), unless the authorization is terminated or revokedsooner.When diagnostic testing is negative, the possibility of a falsenegative result should be considered in the context of a patient'srecent exposures and the presence of clinical signs and symptomsconsistent with COVID- 19. An individual without symptoms of COVID-19and who is not shedding SARS-CoV-2 virus would expect to have anegative (not detected) result in this assay. ID Date Data Source [id number] 07/25/2020 05:00:00 PM EST [facility] Name Value Range Interpretation Code Description Data Darleen rce(s) Supporting Document(s) SARS coronavirus 2 RNA Not Detected [facility] This lab was ordered by [facility] and reported by [facility]. ID Date Data Source [id number] 07/28/2020 08:54:00 PM EST [facility] Name Value Range Interpretation Code Description Data Darleen rce(s) Supporting Document(s) SARS-CoV-2, AMY Not Detected Not Detected [facility] This nucleic acid amplification test was developed and its performancecharacteristics determined by [facility]. Nucleic acidamplification tests include RT-PCR and TMA. This test has not beenFDA cleared or approved. This test has been authorized by FDA underan Emergency Use Authorization (EUA). This test is only authorizedfor the duration of time the declaration that circumstances existjustifying the authorization of the emergency use of in vitrodiagnostic tests for detection of SARS-CoV-2 virus and/or diagnosisof COVID-19 infection under section 564(b)(1) of the Act, 21 U.S.C.360bbb-3(b) (1), unless the authorization is terminated or revokedsooner.When diagnostic testing is negative, the possibility of a falsenegative result should be considered in the context of a patient'srecent exposures and the presence of clinical signs and symptomsconsistent with COVID- 19. An individual without symptoms of COVID-19and who is not shedding SARS-CoV-2 virus would expect to have anegative (not detected) result in this assay. ID Date Data Source [id number] 07/17/2020 06:35:00 PM EST [facility] Name Value Range Interpretation Code Description Data Darleen rce(s) Supporting Document(s) SARS coronavirus 2 RNA Not Detected [facility] This lab was ordered by [facility] and reported by [facility]. ID Date Data Source [id number] 07/19/2020 05:40:00 PM EST [facility] Name Value Range Interpretation Code Description Data Darleen rce(s) Supporting Document(s) SARS-CoV-2, AMY Not Detected Not Detected [facility] This nucleic acid amplification test was developed and its performancecharacteristics determined by [facility]. Nucleic acidamplification tests include RT-PCR and TMA. This test has not beenFDA cleared or approved. This test has been authorized by FDA underan Emergency Use Authorization (EUA). This test is only authorizedfor the duration of time the declaration that circumstances existjustifying the authorization of the emergency use of in vitrodiagnostic tests for detection of SARS-CoV-2 virus and/or diagnosisof COVID-19 infection under section 564(b)(1) of the Act, 21 U.S.C.360bbb-3(b) (1), unless the authorization is terminated or revokedsooner.When diagnostic testing is negative, the possibility of a falsenegative result should be considered in the context of a patient'srecent exposures and the presence of clinical signs and symptomsconsistent with COVID- 19. An individual without symptoms of COVID-19and who is not shedding SARS-CoV-2 virus would expect to have anegative (not detected) result in this assay. ORDER COVID 19 2 DAY YES [facility] ID Date Data Source [id number] 07/11/2020 05:30:00 PM EST [facility] Name Value Range Interpretation Code Description Data Darleen rce(s) Supporting Document(s) SARS coronavirus 2 RNA We are UNABLE to reliably de termine a result for the specimen due to [facility] This lab was ordered by [facility] and reported by [facility]. ID Date Data Source [id number] 07/16/2020 08:27:00 AM EST [facility] Name Value Range Interpretation Code Description Data Darleen rce(s) Supporting Document(s) SARS-CoV-2, AMY COMMENT Not Detected [facility] We are UNABLE to reliably determine a re sult for the specimen due tothe presence of PCR inhibitor(s) in the specimen submitted. Ifclinically indicated, please recollect an additional specimen fortesting.This nucleic acid amplification test was developed and its performancecharacteristics determined by [facility]. Nucleic acidamplification tests include PCR and TMA. This test has not been FDAcleared or approved. This test has been authorized by FDA under anEmergency Use Authorization (EUA). This test is only authorized forthe duration of time the declaration that circumstances existjustifying the authorization of the emergency use of in vitrodiagnostic tests for detection of SARS-CoV-2 virus and/or diagnosisof COVID-19 infection under section 564(b)(1) of the Act, 21 U.S.C.360bbb-3(b) (1), unless the authorization is terminated or revokedsooner.When diagnostic testing is negative, the possibility of a falsenegative result should be considered in the context of a patient'srecent exposures and the presence of clinical signs and symptomsconsistent with COVID- 19. An individual without symptoms of COVID-19and who is not shedding SARS-CoV-2 virus would expect to have anegative (not detected) result in this assay. ORDER COVID 19 2 DAY NO [facility] ID Date Data Source [id number] 07/06/2020 12:00:00 PM EST [facility] Name Value Range Interpretation Code Description Data Darleen rce(s) Supporting Document(s) SARS coronavirus 2 RNA Not Detected [facility] This lab was ordered by [facility] Don claire and reported by [facility]. ID Date Data Source [id number] 07/08/2020 03:04:00 PM EST [facility] Name Value Range Interpretation Code Description Data Darleen rce(s) Supporting Document(s) SARS-CoV-2, AMY Not Detected Not Detected [facility] This nucleic acid amplification test was developed and its performancecharacteristics determined by [facility]. Nucleic acidamplification tests include PCR and TMA. This test has not been FDAcleared or approved. This test has been authorized by FDA under anEmergency Use Authorization (EUA). This test is only authorized forthe duration of time the declaration that circumstances existjustifying the authorization of the emergency use of in vitrodiagnostic tests for detection of SARS-CoV-2 virus and/or diagnosisof COVID-19 infection under section 564(b)(1) of the Act, 21 U.S.C.360bbb-3(b) (1), unless the authorization is terminated or revokedsooner.When diagnostic testing is negative, the possibility of a falsenegative result should be considered in the context of a patient'srecent exposures and the presence of clinical signs and symptomsconsistent with COVID- 19. An individual without symptoms of COVID-19and who is not shedding SARS-CoV-2 virus would expect to have anegative (not detected) result in this assay. ORDER COVID 19 2 DAY YES [facility] ID Date Data Source [id number] 06/29/2020 01:10:00 PM EST [facility] Name Value Range Interpretation Code Description Data Darleen rce(s) Supporting Document(s) SARS coronavirus 2 RNA Not Detected [facility] This lab was ordered by [facility] Don claire and reported by [facility]. ID Date Data Source [id number] 07/02/2020 07:12:00 AM EST [facility] Name Value Range Interpretation Code Description Data Darleen rce(s) Supporting Document(s) SARS-CoV-2, AMY Not Detected Not Detected [facility] This nucleic acid amplification test was developed and its performancecharacteristics determined by [facility]. Nucleic acidamplification tests include PCR and TMA. This test has not been FDAcleared or approved. This test has been authorized by FDA under anEmergency Use Authorization (EUA). This test is only authorized forthe duration of time the declaration that circumstances existjustifying the authorization of the emergency use of in vitrodiagnostic tests for detection of SARS-CoV-2 virus and/or diagnosisof COVID-19 infection under section 564(b)(1) of the Act, 21 U.S.C.360bbb-3(b) (1), unless the authorization is terminated or revokedsooner.When diagnostic testing is negative, the possibility of a falsenegative result should be considered in the context of a patient'srecent exposures and the presence of clinical signs and symptomsconsistent with COVID- 19. An individual without symptoms of COVID-19and who is not shedding SARS-CoV-2 virus would expect to have anegative (not detected) result in this assay. ID Date Data Source [id number] 06/26/2020 12:00:00 AM EST [facility] Name Value Range Interpretation Code Description Data Darleen rce(s) Supporting Document(s) SARS coronavirus 2 Ag Negative [facility] This lab was ordered by [facility] and reported by [facility]. ID Date Data Source [id number] 06/22/2020 09:05:00 AM EST [facility] Name Value Range Interpretation Code Description Data Darleen rce(s) Supporting Document(s) SARS coronavirus 2 RNA [facility] This lab was ordered by [facility] and reported by [facility]. ID Date Data Source [id number] 06/25/2020 06:21:00 AM EST [facility] Name Value Range Interpretation Code Description Data Darleen rce(s) Supporting Document(s) SARS-CoV-2, AMY Not Detected Not Detected [facility] This nucleic acid amplification test was developed and its performancecharacteristics determined by [facility]. Nucleic acidamplification tests include PCR and TMA. This test has not been FDAcleared or approved. This test has been authorized by FDA under anEmergency Use Authorization (EUA). This test is only authorized forthe duration of time the declaration that circumstances existjustifying the authorization of the emergency use of in vitrodiagnostic tests for detection of SARS-CoV-2 virus and/or diagnosisof COVID-19 infection under section 564(b)(1) of the Act, 21 U.S.C.360bbb-3(b) (1), unless the authorization is terminated or revokedsooner.When diagnostic testing is negative, the possibility of a falsenegative result should be considered in the context of a patient'srecent exposures and the presence of clinical signs and symptomsconsistent with COVID- 19. An individual without symptoms of COVID-19and who is not shedding SARS-CoV-2 virus would expect to have anegative (not detected) result in this assay. ID Date Data Source [id number] 06/16/2020 02:20:00 PM EST [facility] Name Value Range Interpretation Code Description Data Darleen rce(s) Supporting Document(s) SARS coronavirus 2 RNA [facility] This lab was ordered by [facility] dakotah and reported by [facility]. ID Date Data Source [id number] 06/19/2020 07:37:00 AM EST [facility] Name Value Range Interpretation Code Description Data Darleen rce(s) Supporting Document(s) SARS-CoV-2, AMY Not Detected Not Detected [facility] This nucleic acid amplification test was developed and its performancecharacteristics determined by [facility]. Nucleic acidamplification tests include PCR and TMA. This test has not been FDAcleared or approved. This test has been authorized by FDA under anEmergency Use Authorization (EUA). This test is only authorized forthe duration of time the declaration that circumstances existjustifying the authorization of the emergency use of in vitrodiagnostic tests for detection of SARS-CoV-2 virus and/or diagnosisof COVID-19 infection under section 564(b)(1) of the Act, 21 U.S.C.360bbb-3(b) (1), unless the authorization is terminated or revokedsooner.When diagnostic testing is negative, the possibility of a falsenegative result should be considered in the context of a patient'srecent exposures and the presence of clinical signs and symptomsconsistent with COVID- 19. An individual without symptoms of COVID-19and who is not shedding SARS-CoV-2 virus would expect to have anegative (not detected) result in this assay. ID Date Data Source [id number] 06/09/2020 01:20:00 PM EST [facility] Name Value Range Interpretation Code Description Data Darleen rce(s) Supporting Document(s) SARS coronavirus 2 RNA [facility] This lab was ordered by [facility] and reported by [facility]. ID Date Data Source [id number] 06/12/2020 06:17:00 AM EST [facility] Name Value Range Interpretation Code Description Data Darleen rce(s) Supporting Document(s) SARS-CoV-2, AMY Not Detected Not Detected [facility] This nucleic acid amplification test was developed and its performancecharacteristics determined by [facility]. Nucleic acidamplification tests include PCR and TMA. This test has not been FDAcleared or approved. This test has been authorized by FDA under anEmergency Use Authorization (EUA). This test is only authorized forthe duration of time the declaration that circumstances existjustifying the authorization of the emergency use of in vitrodiagnostic tests for detection of SARS-CoV-2 virus and/or diagnosisof COVID-19 infection under section 564(b)(1) of the Act, 21 U.S.C.360bbb-3(b) (1), unless the authorization is terminated or revokedsooner.When diagnostic testing is negative, the possibility of a falsenegative result should be considered in the context of a patient'srecent exposures and the presence of clinical signs and symptomsconsistent with COVID- 19. An individual without symptoms of COVID-19and who is not shedding SARS-CoV-2 virus would expect to have anegative (not detected) result in this assay. ID Date Data Source [id number] 06/02/2020 01:15:00 PM EST [facility] Name Value Range Interpretation Code Description Data Darleen e(s) Supporting Document(s) SARS coronavirus 2 RNA [facility] This lab was ordered by [facility] dakotah and reported by [facility]. ID Date Data Source [id number] 06/05/2020 01:54:00 PM EST [facility] Name Value Range Interpretation Code Description Data Darleen rce(s) Supporting Document(s) SARS-CoV-2, AMY Not Detected Not Detected [facility] This nucleic acid amplification test was developed and its performancecharacteristics determined by [facility]. Nucleic acidamplification tests include PCR and TMA. This test has not been FDAcleared or approved. This test has been authorized by FDA under anEmergency Use Authorization (EUA). This test is only authorized forthe duration of time the declaration that circumstances existjustifying the authorization of the emergency use of in vitrodiagnostic tests for detection of SARS-CoV-2 virus and/or diagnosisof COVID-19 infection under section 564(b)(1) of the Act, 21 U.S.C.360bbb-3(b) (1), unless the authorization is terminated or revokedsooner.When diagnostic testing is negative, the possibility of a falsenegative result should be considered in the context of a patient'srecent exposures and the presence of clinical signs and symptomsconsistent with COVID- 19. An individual without symptoms of COVID-19and who is not shedding SARS-CoV-2 virus would expect to have anegative (not detected) result in this assay. ID Date Data Source [id number] 05/27/2020 06:00:00 AM EST [facility] Name Value Range Interpretation Code [facility] Supporting [facility](s) SARS coronavirus 2 RNA [facility] This lab was ordered by [facility] and reported by [facility]. ID Date Data Source [id number] 05/29/2020 08:10:00 PM [facility] Name Value Range Interpretation Code Description Data [facility] rce(s) Supporting Document(s) SARS-CoV-2, AMY Not Detected Not Detected [facility] This nucleic acid amplification test was developed and its performancecharacteristics determined by [facility]. Nucleic acidamplification tests include PCR and TMA. This test has not been FDAcleared or approved. This test has been authorized by FDA under anEmergency Use Authorization (EUA). This test is only authorized forthe duration of time the declaration that circumstances existjustifying the authorization of the emergency use of in vitrodiagnostic tests for detection of SARS-CoV-2 virus and/or diagnosisof COVID-19 infection under section 564(b)(1) of the Act, 21 U.S.C.360bbb-3(b) (1), unless the authorization is terminated or revokedsooner.When diagnostic testing is negative, the possibility of a falsenegative result should be considered in the context of a patient'srecent exposures and the presence of clinical signs and symptomsconsistent with COVID- 19. An individual without symptoms of COVID-19and who is not shedding SARS-CoV-2 virus would expect to have anegative (not detected) result in this assay. ID Date Data Source [id number] 05/19/2020 12:00:00 AM EST [facility] Name Value Range Interpretation Code Description Data [facility] rce(s) Supporting Document(s) SARS-CoV2 Rapid Antigen [facility] This lab was ordered by [facility] and reported by [facility]. ID Date Data Source [id number] 05/12/2020 01:20:00 PM EST [facility] Name Value Range Interpretation Code Description Data Darleen rce(s) Supporting Document(s) SARS coronavirus 2 RNA [facility] This lab was ordered by [facility] and reported by [facility]. ID Date Data Source [id number] 05/15/2020 07:05:00 AM EST [facility] Name Value Range Interpretation Code Description [facility] Supporting Document(s) SARS-CoV-2, AMY Not Detected Not Detected [facility] This nucleic acid amplification test was developed and its performancecharacteristics determined by [facility]. Nucleic acidamplification tests include PCR and TMA. This test has not been FDAcleared or approved. This test has been authorized by FDA under anEmergency Use Authorization (EUA). This test is only authorized forthe duration of time the declaration that circumstances existjustifying the authorization of the emergency use of in vitrodiagnostic tests for detection of SARS-CoV-2 virus and/or diagnosisof COVID-19 infection under section 564(b)(1) of the Act, 21 U.S.C.360bbb-3(b) (1), unless the authorization is terminated or revokedsooner.When diagnostic testing is negative, the possibility of a falsenegative result should be considered in the context of a patient'srecent exposures and the presence of clinical signs and symptomsconsistent with COVID- 19. An individual without symptoms of COVID-19and who is not shedding SARS-CoV-2 virus would expect to have anegative (not detected) result in this assay. ID Date Data Source [id number] 05/05/2020 11:50:00 AM EST [facility] Name Value Range Interpretation Code Description Data Darleen rce(s) Supporting Document(s) SARS coronavirus 2 RNA [facility] This lab was ordered by [facility] Don calire and reported by [facility]. ID Date Data Source [id number] 05/08/2020 06:51:00 AM EST [facility] Name Value Range Interpretation Code Description Data Darleen rce(s) Supporting Document(s) SARS-CoV-2, AMY Not Detected Not Detected [facility] This nucleic acid amplification test was developed and its performancecharacteristics determined by [facility]. Nucleic acidamplification tests include PCR and TMA. This test has not been FDAcleared or approved. This test has been authorized by FDA under anEmergency Use Authorization (EUA). This test is only authorized forthe duration of time the declaration that circumstances existjustifying the authorization of the emergency use of in vitrodiagnostic tests for detection of SARS-CoV-2 virus and/or diagnosisof COVID-19 infection under section 564(b)(1) of the Act, 21 U.S.C.360bbb-3(b) (1), unless the authorization is terminated or revokedsooner.When diagnostic testing is negative, the possibility of a falsenegative result should be considered in the context of a patient'srecent exposures and the presence of clinical signs and symptomsconsistent with COVID- 19. An individual without symptoms of COVID-19and who is not shedding SARS-CoV-2 virus would expect to have anegative (not detected) result in this assay. ID Date Data Source [id number] 04/28/2020 01:45:00 PM EST [facility] Name Value Range Interpretation Code Description Data Darleen rce(s) Supporting Document(s) SARS coronavirus 2 RNA [facility] This lab was ordered by [facility] dakotah and reported by [facility]. ID Date Data Source [id number] 04/30/2020 07:18:00 PM EST [facility] Name Value Range Interpretation Code Description Data Darleen rce(s) Supporting Document(s) SARS-CoV-2, AMY Not Detected Not Detected [facility] This nucleic acid amplification test was developed and its performancecharacteristics determined by [facility]. Nucleic acidamplification tests include PCR and TMA. This test has not been FDAcleared or approved. This test has been authorized by FDA under anEmergency Use Authorization (EUA). This test is only authorized forthe duration of time the declaration that circumstances existjustifying the authorization of the emergency use of in vitrodiagnostic tests for detection of SARS-CoV-2 virus and/or diagnosisof COVID-19 infection under section 564(b)(1) of the Act, 21 U.S.C.360bbb-3(b) (1), unless the authorization is terminated or revokedsooner.When diagnostic testing is negative, the possibility of a falsenegative result should be considered in the context of a patient'srecent exposures and the presence of clinical signs and symptomsconsistent with COVID- 19. An individual without symptoms of COVID-19and who is not shedding SARS-CoV-2 virus would expect to have anegative (not detected) result in this assay. ID Date Data Source [id number] 04/21/2020 01:08:00 PM EDT [facility] Name Value Range Interpretation Code Description Data Darleen rce(s) Supporting Document(s) SARS coronavirus 2 RNA [facility] This lab was ordered by [facility] dakotah and reported by [facility]. ID Date Data Source [id number] 04/24/2020 06:47:00 AM EDT [facility] Name Value Range Interpretation Code Description Data Darleen rce(s) Supporting Document(s) SARS-CoV-2, AMY Not Detected Not Detected [facility] This nucleic acid amplification test was developed and its performancecharacteristics determined by [facility]. Nucleic acidamplification tests include PCR and TMA. This test has not been FDAcleared or approved. This test has been authorized by FDA under anEmergency Use Authorization (EUA). This test is only authorized forthe duration of time the declaration that circumstances existjustifying the authorization of the emergency use of in vitrodiagnostic tests for detection of SARS-CoV-2 virus and/or diagnosisof COVID-19 infection under section 564(b)(1) of the Act, 21 U.S.C.360bbb-3(b) (1), unless the authorization is terminated or revokedsooner.When diagnostic testing is negative, the possibility of a falsenegative result should be considered in the context of a patient'srecent exposures and the presence of clinical signs and symptomsconsistent with COVID- 19. An individual without symptoms of COVID-19and who is not shedding SARS-CoV-2 virus would expect to have anegative (not detected) result in this assay. ID Date Data Source [id number] 04/15/2020 12:00:00 PM EDT [facility] Name Value Range Interpretation Code Description Data [facility] Supporting Document(s) SARS coronavirus 2 RNA [facility]. ID Date Data Source [id number] 04/17/2020 08:58:00 PM EDT [facility] Name Value Range Interpretation Code Description Data Darleen rce(s) Supporting Document(s) SARS-CoV-2, AMY Not Detected Not Detected [facility] This nucleic acid amplification test was developed and its performancecharacteristics determined by [facility]. Nucleic acidamplification tests include PCR and TMA. This test has not been FDAcleared or approved. This test has been authorized by FDA under anEmergency Use Authorization (EUA). This test is only authorized forthe duration of time the declaration that circumstances existjustifying the authorization of the emergency use of in vitrodiagnostic tests for detection of SARS-CoV-2 virus and/or diagnosisof COVID-19 infection under section 564(b)(1) of the Act, 21 U.S.C.360bbb-3(b) (1), unless the authorization is terminated or revokedsooner.When diagnostic testing is negative, the possibility of a falsenegative result should be considered in the context of a patient'srecent exposures and the presence of clinical signs and symptomsconsistent with COVID- 19. An individual without symptoms of COVID-19and who is not shedding SARS-CoV-2 virus would expect to have anegative (not detected) result in this assay. ID Date Data Source [id number] 04/08/2020 11:00:00 AM EDT [facility] Name Value Range Interpretation Code Description Data Darleen rce(s) Supporting Document(s) SARS coronavirus 2 RNA [facility] This lab was ordered by [facility] dakotah and reported by [facility]. ID Date Data Source [id number] 04/11/2020 07:15:00 AM EDT [facility] Name Value Range Interpretation Code Description Data Darleen rce(s) Supporting Document(s) SARS-CoV-2, AMY Not Detected Not Detected [facility] This nucleic acid amplification test was developed and its performancecharacteristics determined by [facility]. Nucleic acidamplification tests include PCR and TMA. This test has not been FDAcleared or approved. This test has been authorized by FDA under anEmergency Use Authorization (EUA). This test is only authorized forthe duration of time the declaration that circumstances existjustifying the authorization of the emergency use of in vitrodiagnostic tests for detection of SARS-CoV-2 virus and/or diagnosisof COVID-19 infection under section 564(b)(1) of the Act, 21 U.S.C.360bbb-3(b) (1), unless the authorization is terminated or revokedsooner.When diagnostic testing is negative, the possibility of a falsenegative result should be considered in the context of a patient'srecent exposures and the presence of clinical signs and symptomsconsistent with COVID- 19. An individual without symptoms of COVID-19and who is not shedding SARS-CoV-2 virus would expect to have anegative (not detected) result in this assay. ID Date Data Source [id number] 03/31/2020 12:15:00 PM EDT [facility] Name Value Range Interpretation Code Description Data Darleen rce(s) Supporting Document(s) SARS coronavirus 2 RNA [facility] This lab was ordered by [facility] dakotah and reported by [facility]. ID Date Data Source [id number] 04/03/2020 06:27:00 AM EDT [facility] Name Value Range Interpretation Code Description Data Darleen rce(s) Supporting Document(s) SARS-CoV-2, AMY Not Detected Not Detected [facility] This nucleic acid amplification test was developed and its performancecharacteristics determined by [facility]. Nucleic acidamplification tests include PCR and TMA. This test has not been FDAcleared or approved. This test has been authorized by FDA under anEmergency Use Authorization (EUA). This test is only authorized forthe duration of time the declaration that circumstances existjustifying the authorization of the emergency use of in vitrodiagnostic tests for detection of SARS-CoV-2 virus and/or diagnosisof COVID-19 infection under section 564(b)(1) of the Act, 21 U.S.C.360bbb-3(b) (1), unless the authorization is terminated or revokedsooner.When diagnostic testing is negative, the possibility of a falsenegative result should be considered in the context of a patient'srecent exposures and the presence of clinical signs and symptomsconsistent with COVID- 19. An individual without symptoms of COVID-19and who is not shedding SARS-CoV-2 virus would expect to have anegative (not detected) result in this assay. ID Date Data Source [id number] 03/24/2020 12:00:00 PM EDT [facility] Name Value Range Interpretation Code Description Data Darleen rce(s) Supporting Document(s) SARS coronavirus 2 RNA [facility] by [facility] [facility] ID Date Data Source [id number] 03/28/2020 07:38:00 AM EDT [facility] Name Value Range Interpretation Code Description Data Darleen rce(s) Supporting Document(s) SARS-CoV-2, AMY Not Detected Not Detected [facility] This nucleic acid amplification test was developed and its performancecharacteristics determined by [employer] [facility]. Nucleic acidamplification tests include PCR and TMA. This test has not been FDAcleared or approved. This test has been authorized by FDA under anEmergency Use Authorization (EUA). This test is only authorized forthe duration of time the declaration that circumstances existjustifying the authorization of the emergency use of in vitrodiagnostic tests for detection of SARS-CoV-2 virus and/or diagnosisof COVID-19 infection under section 564(b)(1) of the Act, 21 U.S.C.360bbb-3(b) (1), unless the authorization is terminated or revokedsooner.When diagnostic testing is negative, the possibility of a falsenegative result should be considered in the context of a patient'srecent exposures and the presence of clinical signs and symptomsconsistent with COVID- 19. An individual without symptoms of COVID-19and who is not shedding SARS-CoV-2 virus would expect to have anegative (not detected) result in this assay. ID Date Data Source [id number] 03/18/2020 12:02:00 PM EDT [facility] Name Value Range Interpretation Code Description Data [facility] rce(s) Supporting Document(s) SARS coronavirus 2 RNA [facility] This lab was ordered by [facility] and reported by [facility]. ID Date Data Source [id number] 03/20/2020 08:27:00 PM EDT [facility] Name Value Range Interpretation Code Description Data [facility] rce(s) Supporting Document(s) SARS-CoV-2, AMY Not Detected Not Detected [facility] This nucleic acid amplification test was developed and its performancecharacteristics determined by [employer]. Nucleic acidamplification tests include PCR and TMA. This test has not been FDAcleared or approved. This test has been authorized by FDA under anEmergency Use Authorization (EUA). This test is only authorized forthe duration of time the declaration that circumstances existjustifying the authorization of the emergency use of in vitrodiagnostic tests for detection of SARS-CoV-2 virus and/or diagnosisof COVID-19 infection under section 564(b)(1) of the Act, 21 U.S.C.360bbb-3(b) (1), unless the authorization is terminated or revokedsooner.When diagnostic testing is negative, the possibility of a falsenegative result should be considered in the context of a patient'srecent exposures and the presence of clinical signs and symptomsconsistent with COVID- 19. An individual without symptoms of COVID-19and who is not shedding SARS-CoV-2 virus would expect to have anegative (not detected) result in this assay. ID Date Data Source [id number] 03/10/2020 12:42:00 PM EDT [facility] Name Value Range Interpretation Code Description Data Darleen rce(s) Supporting Document(s) SARS coronavirus 2 RNA [facility] This lab was ordered by [facility] and reported by [facility]. ID Date Data Source [id number] 03/12/2020 11:33:00 AM EDT [facility] Name Value Range Interpretation Code Description Data Darleen rce(s) Supporting Document(s) SARS-CoV-2, AMY Not Detected Not Detected [facility] This nucleic acid amplification test was developed and its performancecharacteristics determined by [facility]. Nucleic acidamplification tests include PCR and TMA. This test has not been FDAcleared or approved. This test has been authorized by FDA under anEmergency Use Authorization (EUA). This test is only authorized forthe duration of time the declaration that circumstances existjustifying the authorization of the emergency use of in vitrodiagnostic tests for detection of SARS-CoV-2 virus and/or diagnosisof COVID-19 infection under section 564(b)(1) of the Act, 21 U.S.C.360bbb-3(b) (1), unless the authorization is terminated or revokedsooner.When diagnostic testing is negative, the possibility of a falsenegative result should be considered in the context of a patient'srecent exposures and the presence of clinical signs and symptomsconsistent with COVID- 19. An individual without symptoms of COVID-19and who is not shedding SARS-CoV-2 virus would expect to have anegative (not detected) result in this assay. ID Date Data Source [id number] 03/03/2020 09:00:00 AM EDT [facility] Name Value Range Interpretation Code Description Data Darleen rce(s) Supporting Document(s) SARS coronavirus 2 RNA [facility] This lab was ordered by [facility] and reported by [facility]. ID Date Data Source [id number] 03/05/2020 08:21:00 PM EDT [facility] Name Value Range Interpretation Code Description Data Darleen rce(s) Supporting Document(s) SARS-CoV-2, AMY Not Detected Not Detected [facility] This nucleic acid amplification test was developed and its performancecharacteristics determined by [facility]. Nucleic acidamplification tests include PCR and TMA. This test has not been FDAcleared or approved. This test has been authorized by FDA under anEmergency Use Authorization (EUA). This test is only authorized forthe duration of time the declaration that circumstances existjustifying the authorization of the emergency use of in vitrodiagnostic tests for detection of SARS-CoV-2 virus and/or diagnosisof COVID-19 infection under section 564(b)(1) of the Act, 21 U.S.C.360bbb-3(b) (1), unless the authorization is terminated or revokedsooner.When diagnostic testing is negative, the possibility of a falsenegative result should be considered in the context of a patient'srecent exposures and the presence of clinical signs and symptomsconsistent with COVID- 19. An individual without symptoms of COVID-19and who is not shedding SARS-CoV-2 virus would expect to have anegative (not detected) result in this assay. ID Date Data Source [id number] 02/25/2020 01:05:00 PM EDT [facility] Name Value Range Interpretation Code Description Data [facility](s) Supporting Document(s) SARS coronavirus 2 RNA [facility] ID Date Data Source [id number] 02/28/2020 08:42:00 AM EDT [facility] Name Value Range Interpretation Code Description Data [facility](s) Supporting Document(s) SARS-CoV-2, AMY Not Detected Not Detected [facility] This nucleic acid amplification test was developed and its perfomancecharacteristics determined by [employer] [facility]. Nucleic acidamplification tests include PCR and TMA. This test has not been FDAcleared or approved. This test has been authorized by FDA under anEmergency Use Authorization (EUA). This test is only authorized forthe duration of time the declaration that circumstances existjustifying the authorization of the emergency use of in vitrodiagnostic tests for detection of SARS-CoV-2 virus and/or diagnosisof COVID-19 infection under section 564(b)(1) of the Act, 21 U.S.C.360bbb-3(b) (1), unless the authorization is terminated or revokedsooner.When diagnostic testing is negative, the possibility of a falsenegative result should be considered in the context of a patient'srecent exposures and the presence of clinical signs and symptomsconsistent with COVID- 19. An individual without symptoms of COVID-19and who is not shedding SARS-CoV-2 virus would expect to have anegative (not detected) result in this assay. ID Date Data Source [id number] 02/18/2020 01:00:00 PM EDT [facility] Name Value Range Interpretation Code Description Data Darleen rce(s) Supporting Document(s) SARS coronavirus 2 RNA [facility] This lab was ordered by [facility] and reported by [facility]. ID Date Data Source [id number] 02/20/2020 09:18:00 PM EDT [facility] Name Value Range Interpretation Code Description Data Darleen rce(s) Supporting Document(s) SARS-CoV-2, AMY Not Detected Not Detected [facility] This test was developed and its performa nce characteristics determinedby [employer] [facility]. This test has not been FDA cleared orapproved. This test has been authorized by FDA under an Emergency UseAuthorization (EUA). This test is only authorized for the duration oftime the declaration that circumstances exist justifying theauthorization of the emergency use of in vitro diagnostic tests fordetection of SARS-CoV-2 virus and/or diagnosis of COVID-19 infectionunder section 564(b)(1) of the Act, 21 U.S.C. 360bbb-3(b)(1), unlessthe authorization is terminated or revoked sooner.When diagnostic testing is negative, the possibility of a falsenegative result should be considered in the context of a patient'srecent exposures and the presence of clinical signs and symptomsconsistent with COVID-19. An individual without symptoms of COVID-19and who is not shedding SARS-CoV-2 virus would expect to have anegative (not detected) result in this assay. Procedure Social History Code Duration Value Status Description Data Source(s ) Smoking 04/07/2021 12:00:00 AM EDT Never Smoker completed Never S moker eCW1 ([facility]) Smoking 02/24/2021 12:00:00 AM EDT Never Smoker completed Never S moker eCW1 ([facility]) Smoking 02/24/2021 12:00:00 AM EDT Never Smoker completed Never S moker eCW1 ([facility]) Smoking 02/24/2021 12:00:00 AM EDT Never Smoker completed Never S moker eCW1 ([facility]) Smoking 02/24/2021 12:00:00 AM EDT Never Smoker completed Never S moker eCW1 ([facility]) Smoking 02/20/2021 12:00:00 AM EDT Never Smoker completed Never S moker eCW1 ([facility]) Smoking 02/13/2021 12:00:00 AM EDT Never Smoker completed Never S moker eCW1 ([facility]) Smoking 01/14/2021 12:00:00 AM EDT Never Smoker completed Never S moker eCW1 ([facility]) Smoking 01/14/2021 12:00:00 AM EDT Never Smoker completed Never S moker eCW1 ([facility]) Smoking 01/14/2021 12:00:00 AM EDT Never Smoker completed Never S moker eCW1 ([facility]) Smoking 06/28/2020 12:00:00 AM EST Patient is a former smoker completed Patient is a former smoker MEDENT ([facility], [facility]) Vital Signs ID Date Data Source UNK Name Value Range Interpretation Code Description Data Source(s) Body mass index (BMI) [Ratio] 28.24 kg/m2 28.24 kg/m2 eCW1 ([facility]) Body weight 175 [lb_av] 175 [lb_av] eCW1 ([facility]) Body height 66 [in_i] 66 [in_i] eCW1 ([facility]) Respiratory rate 18 /min 18 /min eCW1 ([facility] hospital) Body temperature 96.7 [degF] 96.7 [degF] eCW1 ( [facility]) Systolic blood pressure 118 mm[Hg] 118 mm[Hg] e CW1 ([facility]) Diastolic blood pressure 76 mm[Hg] 76 mm[Hg] eCW1 ([facility]) Heart rate 90 /min 90 /min eCW1 ([facility] to [facility]) Body weight 175 [lb_av] 175 [lb_av] eCW1 ([facility]) Heart rate 74 /min 74 /min eCW1 ([facility] to [facility]) Respiratory rate 18 /min 18 /min eCW1 ([facility] hospital) Body temperature 96.7 [degF] 96.7 [degF] eCW1 ( [facility]) Systolic blood pressure 122 mm[Hg] 122 mm[Hg] e CW1 ([facility]) Body height 66 [in_i] 66 [in_i] eCW1 ([facility]) Body mass index (BMI) [Ratio] 28.24 kg/m2 28.24 kg/m2 eCW1 ([facility]) Diastolic blood pressure 76 mm[Hg] 76 mm[Hg] eCW1 ([facility]) Body weight 176 [lb_av] 176 [lb_av] eCW1 ([facility]) Body weight 79.83 kg 79.83 kg eCW1 ([facility]) Body height 66 [in_i] 66 [in_i] eCW1 ([facility]) Body mass index (BMI) [Ratio] 28.4 kg/m2 28.4 k g/m2 eCW1 ([facility]) Heart rate 62 /min 62 /min eCW1 ([facility] to [facility]) Respiratory rate 18 /min 18 /min eCW1 (Critical access hospital) Body temperature 97.3 [degF] 97.3 [degF] eCW1 ( [facility]) Systolic blood pressure 120 mm[Hg] 120 mm[Hg] e CW1 ([facility]) Diastolic blood pressure 78 mm[Hg] 78 mm[Hg] eCW1 ([facility]) Body weight 176.4 [lb_av] 176.4 [lb_av] eCW1 ([facility]) Body weight 80.01 kg 80.01 kg eCW1 ([facility]) Body height 66 [in_i] 66 [in_i] eCW1 ([facility]) Body mass index (BMI) [Ratio] 28.47 kg/m2 28.47 kg/m2 eCW1 ([facility]) Heart rate 71 /min 71 /min eCW1 ([facility]ending sale to [facility]) Respiratory rate 18 /min 18 /min eCW1 (Critical access hospital) Body temperature 97.4 [degF] 97.4 [degF] eCW1 ( [facility]) Body weight 176.4 [lb_av] 176.4 [lb_av] eCW1 ([facility]) Body mass index (BMI) [Ratio] 28.47 kg/m2 28.47 kg/m2 eCW1 ([facility]) Body height 66 [in_i] 66 [in_i] eCW1 ([facility]) Systolic blood pressure 122 mm[Hg] 122 mm[Hg] e CW1 ([facility]) Diastolic blood pressure 74 mm[Hg] 74 mm[Hg] eCW1 ([facility]) Systolic blood pressure 143 mm[Hg] 143 mm[Hg] M EDENT ([facility], [facility]) Diastolic blood pressure 89 mm[Hg] 89 mm[Hg] MEDENT ([facility], [facility]) Heart rate 72 /min 72 /min MEDENT ([facility], [facility]) Respiratory rate 18 /min 18 /min MEDENT ( [facility], [facility]) Oxygen saturation in Arterial blood by Pulse oximetry 98 % 98 % MED[facility] ([facility], [facility]) Body temperature 98.4 [degF] 98.4 [degF] MEDENT ([facility], [facility]) Body weight 172.00 [lb_av] 172.00 [lb_av] MEDEN T ([facility], [facility]) Body height 67 [in_i] 67 [in_i] MEDENT ([facility]) 5'7" Body mass index (BMI) [Ratio] 26.9 kg/m2 26.9 k g/m2 [facility] ([facility], [facility]) Heart rate 73 /min 73 /min [facility], [facility]) Systolic blood pressure 123 mm[Hg] 123 mm[Hg] M EDENT ([facility], [facility]) Oxygen saturation in Arterial blood by Pulse oximetry 98 % 98 % [facility] ([facility], [facility]) Body temperature 98.8 [degF] 98.8 [degF] [facility] ([facility], [facility]) Body weight 172.00 [lb_av] 172.00 [lb_av] MEDEN T ([facility], [facility]) Body height 67 [in_i] 67 [in_i] [facility]) 5'7" Body mass index (BMI) [Ratio] 26.9 kg/m2 26.9 k g/m2 [facility] ([facility], [facility]) Diastolic blood pressure 89 mm[Hg] 89 mm[Hg] [facility] ([facility], [facility]) Respiratory rate 15 /min 15 /min [facility] ( [facility], [facility])
[2021-04-14] MEDS ORDERED: BUPIVACAINE HCL 0.25% 30ML VIAL As Ordered ONE (10:00)
[2021-04-14] MEDS ORDERED: LIDOCAINE 1% SDV 30ML VIAL As Ordered ONE (10:00)
[2021-04-14] MEDS ORDERED: METHYLENE BLUE 0.5% (5MG/ML) 10 ML AMP (PROVAYBLUE) As Ordered ONE (10:36)
[2021-04-14] MEDS ORDERED: LIDOCAINE 2% 100MG/5ML SDV (FOR ANES.) As Ordered ONE (10:37)
[2021-04-14] MEDS ORDERED: ONDANSETRON 4MG/2ML VIAL As Ordered ONE (10:37)
[2021-04-14] MEDS ORDERED: MIDAZOLAM INJ 2MG/2ML VIAL (J2250 PER 1MG) As Ordered ONE (10:37)
[2021-04-14] MEDS ORDERED: fentaNYL 250 MCG/5 ML INJECTION (J3010) As Ordered ONE (10:37)
[2021-04-14] MEDS ORDERED: propofoL 200 MG/20 ML VIAL As Ordered ONE (10:37)
[2021-04-14] MEDS ORDERED: dexameTHASONE 4 MG/ML 1ML VIAL (J1100 PER 1MG) As Ordered ONE (10:37)
[2021-04-14] MEDS ORDERED: ROCURONIUM BROMIDE 50 MG/5 ML VIAL As Ordered ONE (10:37)
[2021-04-14] MEDS ORDERED: SUGAMMADEX SODIUM 500 MG/5 ML VIAL (BRIDION) As Ordered ONE (11:01)
[2021-04-14] MEDS ORDERED: ACETAMINOPHEN 1000MG 100ML IV BTL (OFIRMEV) (J0131 PER 10MG) As Ordered ONE (11:03)
[2021-04-14] MEDS ORDERED: ULTR50TA8 PO (13:15)
[2021-04-14] MEDS ORDERED: fentaNYL 100 MCG/2 ML INJECTION (J3010) IV PRN (13:45)
[2021-04-14] MEDS ORDERED: ONDANSETRON 4MG/2ML VIAL IV PRN (13:45)
[2021-04-14] MEDS ORDERED: LR 1,000 ML IV SCH (13:45)
[2021-04-14] MEDS ORDERED: PERCOCET 5MG/325MG TAB PO PRN (13:45)
[2021-04-14 14:50] VITALS: BP 130/78
--- NOTE | 2021-04-14 17:16 | REP ---
INDICATION: LEFT BREAST CA. COMPARISON: None. TECHNIQUE/RADIOTRACER AND DOSE: This procedure was performed by LAKEISHA Chaudhry, under the direct supervision of Dr. Serra. Images were reviewed with Dr. Serra prior to dictation. The risks and benefits of the procedure were explained to the patient and informed consent was obtained both orally and written. Directly prior to the start of the procedure, a formal timeout was done in the exam room. Using topical anesthetic and sterile technique 1.021 mCi of filtered Technetium-99m sulfur colloid was injected subdermally in 8 fractionated periareolar injections. FINDINGS: Images obtained 1 hour after injection show a dominant focus of activity in the left axilla. IMPRESSION: There is a dominant focus of activity within the left axilla. <Electronically signed by Patricia Andrew > 04/14/21 1650 <Electronically signed by Juan Serra > 04/14/21 171
--- NOTE | 2021-04-19 18:33 | ROOPDOC ---
[facility] Report Of Operation Report of Operation DATE OF PROCEDURE: 04/14/21 PREPROCEDURE DIAGNOSES: Left breast cancer POSTPROCEDURE DIAGNOSES: Left breast cancer PROCEDURE PERFORMED: Left lumpectomy with intraop wire placement and left sentinel lymph node biopsy SURGEON: Dr Diana Cristobal ANESTHESIA: general ESTIMATED BLOOD LOSS: Approximately 100 mL. COMPLICATIONS: none REMARKS: Clip centrally identified in the specimen with the adjacent wire PROCEDURE NOTE: INDICATIONS: Ms. Vegas is a 61-year-old woman who was found to have a suspicious left breast mass on screening mammogram. This was evaluated with diagnostic imaging and biopsy was done. Surgical options were presented to patient. She opted for breast conservative surgery with sentinel lymph node biopsy on the left. She was medically cleared for surgery by her primary care doctor. Risks and possible complications of surgical procedure including bleeding, infection and injury to surrounding structures were explained to the patient and she wished to proceed. Consent was signed. My initials were placed on the operat raúl site. Subcutaneous injection of 5000 units of heparin was done. The injection of radioactive tracer was done in radiology department preoperatively. Lymphoscintigraphy imaging was reviewed in preop. DETAILS: Patient was taken to the operating room and placed on the operating room table. A sign in was called stating patients name, date of and the procedure to be done. Preoperative antibiotics were infused. Smooth induction of general anesthesia was done. Patients hands were extended on arm rests. Care was taken not to over extend the arms. Pillow was placed under the knees and a foam was placed under the heels. Sequential compression devices were placed and assured to function correctly. Procedure was started with left breast intraop wire localization. Appropriate time out was done and patients name, date of , and the procedure to be done were confirmed. Left breast was cleaned by me. Intraoperative ultrasound was used to confirm location of the Hydromark clip. Location of the clip was ma rked on the skin as well. 21 G Kopans Breast Lesion Localization Needle was used to place 25 cm wire through the lesion. The end of the wire was passed a centimeter deep. The images were captured confirming adequate placement of the localizing wire. Welt Pocket Machine Operator assisted with the wire placement. Next, patients left breast and axilla were prepped and draped in the usual fashion. Care was taken not to displace the wire. Appropriate time out was done again prior second part of the procedure. Patients name, date of , and the procedure to be done were confirmed. Procedure was started with sentinel lymph node biopsy. Neoprobe was used to locate area of maximum intensity of the signal. Local anesthetic using 1% lidocaine and 0.25 % Marcaine 50/50 mix was injected. An incision was made with scalpel number 15 at the inferior aspect of axillary hair line in the left axilla where the maximum signal was identified. The sharp and blunt dissection was continued through the subcutaneous adipose tissue. Clavipectoral fascia was opened. Neoprobe was used to guide the dissection. First sentinel lymph node was identified and excised. The ex-vivo 10 second count was 8929. Second sentinel lymph node was identified and excised as well. The ex-vivo 10 second count was 3907. The specimens were labeled with patients name and sent to pathology. No additional lymph nodes with high radioactive signal were identified. The 10 second count of the background was 1. Adequate hemostasis was assured. Additional local anesthetic was injected into surrounding tissues. Wound was irrigated. Clavipectoral fascia was closed with 3-0 Vicryl interrupted suture. Dermal layer was closed at the end of the case with 3-0 Monocryl and skin was closed with 4-0 Monocryl. Surgical glue was applied to the incision at the end of the procedure. Next, our attention was turned toward the left breast. Local anesthetic using 1% lidocaine and 0.25 % Marcaine 50/50 mix was injected at the site of planned left periareolar incision. The incision was made with the scalpel. Subcutaneous skin flaps were raised and the guide wire was carefully pulled into the wound. Dissection was carries along the wire until the previously marked on the skin area of target lesion location was encountered. At this point, wider excision of the tissue surrounding the wire was done. The Hydromark clip was identified in the tissue with intraoperative hockey stick ultrasound probe. The end of the wire was identified with palpation. The lumpectomy specimen was carefully removed from the breast keeping its proper orientation and moved to the back table where margins were marked with the surgical inking kit following the standard colors recommendations. Specimen was then placed on the grid and placed in [employer]. The image revealed the wire and the Hydromark in the specimen. The specimen was labeled with patients name and left lumpectomy and sent to pathology. The specimen measured 6x4 cm. Lumpectomy margins were evaluated using the intraop radiography and were felt to be adequate. No additional margin excision was deemed necessary. Wound was thoroughly irrigated. Adequate hemostasis was assured. Additional local anesthetic was injected into surrounding tissues. Five clips were placed to rosalia the cavity. space was approximated with 2-0 Vicryl. The dermis was closed with 3-0 Vicryl and skin was closed with 4-0 Monocryl. Surgical glue was placed over the incision. Patient emerged from the anesthesia without any problems. Fluffs were placed over the operative site and patients chest was wrapped snuggly in the TRICIA wrap. Sponge and instrument counts were done and were correct. Patient tolerated procedure well and was taken to recovery unit in stable condition. DIANA CRISTOBAL DO Apr 14, 2021 21:19
== END 2021-04-14 14:50 | disposition home or self-care (01) ==
LOC: M SDC 06:32
PROVIDERS: ATTEND Surgery
DX: C50.912 Malignant neoplasm of unspecified site of left female breast (principal); Z17.0 Estrogen receptor positive status [ER+]
CPT/HCPCS: 19125; 36415; 38525; 76942; 78195; 81025; 86850; 86900; 86901; 88307; 88342; A9541; J0131; J0690; J1100; J1644; J2250; J2405; J3010

== ENCOUNTER → 2022-01-19 | Outpatient (CLI) | payer BC ==
[~2022-01-19] MED LIST changes: -HEPARIN SOD (PORCINE) 5000UNITS/ML 1ML VIAL/SYRINGE SQ SCH; -LR 1,000 ML IV SCH; +ULTR50TA8 PO; -ceFAZolin SOD 2 GM in IV 1 EA IV SCH
== END ==
LOC: M WHC 11:14
PROVIDERS: ATTEND Obstetrics & Gynecology
DX: Z53.9 Procedure and treatment not carried out, unspecified reason (principal)

== ENCOUNTER → 2022-01-19 | Outpatient (REF) | payer BC | LOC: M SFHCWAGY 13:07 | PROVIDERS: ATTEND Obstetrics & Gynecology | DX: Z12.4 Encounter for screening for malignant neoplasm of cervix (principal) ==

== ENCOUNTER → 2022-01-19 | Outpatient (CLI) | payer BC | LOC: M WHC 09:58 | PROVIDERS: ATTEND Obstetrics & Gynecology | DX: C50.912 Malignant neoplasm of unspecified site of left female breast (principal); Z13.820 Encounter for screening for osteoporosis | CPT/HCPCS: 77066; 77080; G0279 ==

== ENCOUNTER 2022-07-10 10:37 | Emergency (ER) | payer BC ==
[~2022-07-10] VITALS: Ht 170.2 cm; Wt 79.4 kg
[2022-07-10 11:25] LABS: BASO % 0.5 % (0.0-1.0); EOS # 0.1 10^3/uL (0.0-0.5); EOS % 0.6 % (0.0-3.0); HEMATOCRIT 46.6 % (36.0-47.0); HEMOGLOBIN 15.3 g/dl (12.0-15.5); LYMPH # 1.1 10^3/uL (1.5-5.0); LYMPH % 12.8 % (24.0-44.0); MEAN CORPUSCULAR HEMOGLOBIN 31.2 pg (27.0-33.0); MEAN CORPUSCULAR HGB CONC 32.8 g/dl (32.0-36.5); MEAN CORPUSCULAR VOLUME 94.9 fl (80.0-96.0); MONO # 0.6 10^3/uL (0.0-0.8); MONO % 7.1 % (2.0-8.0); NEUTROPHILS # 6.6 10^3/uL (1.5-8.5); NEUTROPHILS % 78.5 % (36.0-66.0); PLATELET COUNT, AUTOMATED 256 10^3/uL (150-450); RED BLOOD COUNT 4.91 10^6/uL (4.00-5.40); WHITE BLOOD COUNT 8.4 10^3/uL (4.0-10.0)
[2022-07-10] MEDS ORDERED: ONDANSETRON 4MG ORAL DISINTEGRATING TAB PO ONE (11:45)
[2022-07-10 11:49] LABS: LIPASE 39 U/L (12-53)
[2022-07-10 11:51] LABS: BILIRUBIN,DIRECT 0.1 MG/DL (<0.4)
[2022-07-10 11:52] LABS: ALKALINE PHOSPHATASE 54 U/L (46-116); ALT/SGPT 26 U/L (7.0-40); AST/SGOT 17 U/L (<34); BILIRUBIN,TOTAL 0.6 MG/DL (0.3-1.2); BLOOD UREA NITROGEN 20 MG/DL (9-23); CALCIUM LEVEL 9.4 MG/DL (8.3-10.6); CARBON DIOXIDE LEVEL 23 MMOL/L (20-31); CHLORIDE LEVEL 107 MMOL/L (98-107); CREATININE FOR GFR 0.63 MG/DL (0.55-1.30); GLOMERULAR FILTRATION RATE > 60.0 (>45); GLUCOSE, FASTING 102 MG/DL (74-106); POTASSIUM SERUM 4.6 MMOL/L (3.5-5.1); SODIUM LEVEL 141 MMOL/L (136-145); TOTAL PROTEIN 6.7 G/DL (5.7-8.2)
[2022-07-10] MEDS ORDERED: ONDA4TAB6 PO (12:40)
[2022-07-10 12:47] VITALS: BP 137/86
== END 2022-07-10 13:06 | disposition home or self-care (01) ==
LOC: M ED 10:37
DX: A09 Infectious gastroenteritis and colitis, unspecified (principal); Z88.9 Allergy status to unspecified drugs, medicaments and biological substances; Z79.899 Other long term (current) drug therapy

== ENCOUNTER → 2023-01-20 | Outpatient (CLI) | payer BC ==
[~2023-01-20] MED LIST changes: +ONDA4TAB6 PO
== END ==
LOC: M WHC 07:59
PROVIDERS: ATTEND Nurse Practitioner Women's Health
DX: C50.912 Malignant neoplasm of unspecified site of left female breast (principal)
CPT/HCPCS: 77066; G0279

== ENCOUNTER → 2023-01-24 | Outpatient (REF) | payer BC | LOC: M PLALAB 10:37 | PROVIDERS: ATTEND Nurse Practitioner Family | DX: Z12.4 Encounter for screening for malignant neoplasm of cervix (principal) | CPT/HCPCS: 87624; G0123 ==

== ENCOUNTER → 2024-01-30 | Outpatient (CLI) | payer BC ==
[~2024-01-30] MED LIST changes: +ONDA-282 PO; -ONDA4TAB6 PO
== END ==
LOC: M WHC 13:00
PROVIDERS: ATTEND Nurse Practitioner Family
DX: C50.912 Malignant neoplasm of unspecified site of left female breast (principal)
CPT/HCPCS: 77066; 77080; G0279

== ENCOUNTER → 2024-02-03 | Outpatient (REF) | payer BC | LOC: M LAB REF 12:18 | PROVIDERS: ATTEND Physician Assistant | DX: M79.10 Myalgia, unspecified site (principal) ==

== ENCOUNTER → 2024-05-25 | Outpatient (REF) | payer BC | LOC: M LAB REF 13:23 | PROVIDERS: ATTEND Physician Assistant Medical | DX: B34.9 Viral infection, unspecified (principal) ==

== ENCOUNTER 2024-08-31 15:30 | Emergency (ER) | payer BC ==
[~2024-08-31] VITALS: Ht 170.2 cm; Wt 77.1 kg
[2024-08-31 16:15] LABS: BASO # 0.1 10^3/uL (0.0-0.2); BASO % 0.7 % (0.0-1.0); EOS # 0.1 10^3/uL (0.0-0.5); HEMATOCRIT 43.9 % (36.0-47.0); HEMOGLOBIN 14.8 g/dl (12.0-15.5); LYMPH # 1.6 10^3/uL (1.5-5.0); LYMPH % 21.2 % (24.0-44.0); MEAN CORPUSCULAR HEMOGLOBIN 31.7 pg (27.0-33.0); MEAN CORPUSCULAR HGB CONC 33.7 g/dl (32.0-36.5); MONO # 0.6 10^3/uL (0.0-0.8); MONO % 8.1 % (2.0-8.0); NEUTROPHILS # 5.3 10^3/uL (1.5-8.5); NEUTROPHILS % 68.6 % (36.0-66.0); PLATELET COUNT, AUTOMATED 264 10^3/uL (150-450); RED BLOOD COUNT 4.67 10^6/uL (4.00-5.40); WHITE BLOOD COUNT 7.7 10^3/uL (4.0-10.0)
[2024-08-31 16:46] LABS: BLOOD UREA NITROGEN 20 MG/DL (9-23); CALCIUM LEVEL 9.3 MG/DL (8.3-10.6); CARBON DIOXIDE LEVEL 26 MMOL/L (20-31); CHLORIDE LEVEL 108 MMOL/L (98-107); CREATININE FOR GFR 0.73 MG/DL (0.55-1.30); GLOMERULAR FILTRATION RATE > 60.0 (>45); GLUCOSE, FASTING 87 MG/DL (74-106); SODIUM LEVEL 142 MMOL/L (136-145)
[2024-08-31 17:00] VITALS: BP 165/79; TEMP 97.2; O2SAT 99
[2024-08-31 17:20] LABS: AMPHETAMINES LEVEL URINE NEGATIVE (NEGATIVE); BARBITURATES URINE NEGATIVE (NEGATIVE); BENZODIAZEPINES URINE NEGATIVE (NEGATIVE); CANNABINOIDS URINE NEGATIVE (NEGATIVE); COCAINE METABOLITE URINE NEGATIVE (NEGATIVE); METHADONE URINE NEGATIVE (NEGATIVE); OPIATES URINE NEGATIVE (NEGATIVE); PHENCYCLIDINE URINE NEGATIVE (NEGATIVE)
== END 2024-08-31 17:15 | disposition home or self-care (01) ==
LOC: M ED 15:30
DX: S00.93XA Contusion of unspecified part of head, initial encounter (principal); W10.8XXA Fall (on) (from) other stairs and steps, initial encounter; M47.892 Other spondylosis, cervical region; M25.78 Osteophyte, vertebrae; Z88.8 Allergy status to other drugs, medicaments and biological substances; Y92.9 Unspecified place or not applicable; Y93.89 Activity, other specified; Y99.9 Unspecified external cause status

== ENCOUNTER → 2024-09-19 | Outpatient (REF) | payer BC | LOC: M LAB REF 12:50 | PROVIDERS: ATTEND Physician Assistant | DX: B34.9 Viral infection, unspecified (principal) ==

== ENCOUNTER → 2025-02-03 | Outpatient (REF) | payer BC ==
[~2025-02-03] MED LIST changes: +DEPA250T PO; -DEPA250T2 PO
== END ==
LOC: M LAB REF 08:59
PROVIDERS: ATTEND Physician Assistant
DX: B34.9 Viral infection, unspecified (principal)

== ENCOUNTER → 2025-02-04 | Outpatient (CLI) | payer BC ==
[~2025-02-04] MED LIST changes: -IBUP-1022 PO; +IBUP600T42 PO
== END ==
LOC: M WHC 08:05
PROVIDERS: ATTEND Nurse Practitioner Family
DX: Z12.31 Encounter for screening mammogram for malignant neoplasm of breast (principal); Z13.820 Encounter for screening for osteoporosis
CPT/HCPCS: 77063; 77067; 87624; G0123

== ENCOUNTER → 2025-02-04 | Outpatient (REF) | payer BC ==
[~2025-02-04] MED LIST changes: +IBUP-1022 PO; -IBUP600T42 PO
[2025-02-06 15:12] LABS: HPV APTIMA Not Detected (Not Detected)
== END ==
LOC: M SFHCWAGY 12:39
PROVIDERS: ATTEND Nurse Practitioner Family
DX: Z12.4 Encounter for screening for malignant neoplasm of cervix (principal)
CPT/HCPCS: 87624; G0123